=== PATIENT | female | born 1965 | race Hispanic/Latino ===

== ENCOUNTER 2020-08-02 18:54 | Inpatient (IN) | payer SELFPAY ==
[~2020-08-02] VITALS: Ht 154.9 cm; Wt 78.9 kg
[2020-08-02] MEDS ORDERED: SODIUM CHLORIDE 0.9% 50 ML IV ONE (18:59)
[2020-08-02 19:37] LABS: BASOPHILS % (AUTO) 0.2 % (0.0-5.0); EOSINOPHILS % (AUTO) 0.1 % (0.0-8.0); LYMPHOCYTES % (AUTO) 9.6 % (21.0-51.0); MEAN CORPUSCULAR HEMOGLOBIN 28.6 pg (27.0-33.0); MEAN CORPUSCULAR HGB CONC 33.6 g/dL (32.0-36.0); MEAN CORPUSCULAR VOLUME 84.9 fL (79-99); MONOCYTES % (AUTO) 3.5 % (3.0-13.0); NEUTROPHILS % (AUTO) 86.4 % (40.0-77.0); PLATELET COUNT (AUTO) 328 K/uL (130-400); RED BLOOD CELL COUNT(AUTO) 5.18 MIL/uL (4.00-5.50); RED CELL DISTRIBUTION WIDTH 12.9 % (11.0-15.5); WHITE BLOOD COUNT (AUTO) 16.2 K/uL (4.8-10.8)
[2020-08-02 19:47] LABS: INR 1.02 (0.85-1.15); PROTHROMBIN TIME 11.1 SEC (9.6-11.6)
[2020-08-02] MEDS ORDERED: SODIUM CHLORIDE 0.9% 1000ML 1,000 ML IV ONE (19:47)
[2020-08-02 19:49] LABS: PARTIAL THROMBOPLASTIN TIME 31.7 SEC (26.3-35.5)
[2020-08-02] MEDS ORDERED: METOCLOPRAMIDE 10 MG/2 ML VIAL ONE (19:49)
[2020-08-02] MEDS ORDERED: PANTOPRAZOLE 40 MG/VIAL ONE (19:49)
[2020-08-02] MEDS ORDERED: ONDANSETRON HCL 4 MG/2 ML VIAL ONE ×2 (19:49→21:30)
[2020-08-02] MEDS ORDERED: FAMOTIDINE/PF 20 MG/2 ML VIAL IV ONE (19:50)
[2020-08-02 19:52] LABS: POTASSIUM 3.4 mmol/L (3.5-5.1)
[2020-08-02 19:56] LABS: ALBUMIN 4.5 g/dL (3.5-5.0); BILIRUBIN,TOTAL 0.4 mg/dL (0.2-1.0); TOTAL PROTEIN, SERUM 9.7 g/dL (6.0-8.3)
[2020-08-02] MEDS ORDERED: MORPHINE SULFATE 2 MG/ML 1ML SYG ONE (21:30)
[2020-08-02] MEDS ORDERED: LEVOFLOXACIN 750 MG/D5W 150 ML 150 ML ONE (21:30)
[2020-08-02] MEDS ORDERED: METRONIDAZOLE 500MG/100ML BAG 100 ML ONE (21:30)
[2020-08-02] MEDS ORDERED: ACETAMINOPHEN 325 MG TAB PO PRN (21:45)
[2020-08-02] MEDS: LEVOFLOXACIN 500 MG/D5W 100 ML 100 ML IV SCH (21:45)
[2020-08-02 22:04] LABS: HEMOGLOBIN A1C 7.3 % (4.0-6.0)
[2020-08-02 22:08] LABS: APPEARANCE,URINE Cloudy (CLEAR); BILIRUBIN,URINE Small (NEGATIVE); COLOR,URINE Dark Yellow (YELLOW); GLUCOSE, URINE (UA) Negative (NEGATIVE); KETONES,URINE 15 mg/dL (NEGATIVE); LEUKOCYTE ESTERASE ,URINE Large (NEGATIVE); NITRATE,URINE Negative (NEGATIVE); OCCULT BLOOD,URINE Negative (NEGATIVE); PROTEIN,URINE POS 2+ mg/dL (NEGATIVE)
[2020-08-02 22:55] LABS: BACTERIA,URINE Moderate /HPF (None Seen); RBC,URINE 0-1 /HPF (0-1); SQUAMOUS EPITHELIAL CELL,UR 0-2 /HPF (0-2); WBC,URINE 51-100 /HPF (0-1)
[2020-08-03 00:35] VITALS: BP 133/64
[2020-08-03] MEDS: SODIUM CHLORIDE 0.9% 1000ML 1,000 ML IV SCH ×3 (01:25→20:34)
[2020-08-03] MEDS: MORPHINE SULFATE 2 MG/ML 1ML SYG IV PRN ×4 (01:26→23:23)
[2020-08-03] MEDS: ONDANSETRON HCL 4 MG/2 ML VIAL IV PRN ×4 (01:29→23:06)
[2020-08-03 04:24] VITALS: BP 135/70
[2020-08-03 05:53] LABS: BASOPHILS % (AUTO) 0.2 % (0.0-5.0); EOSINOPHILS % (AUTO) 1.3 % (0.0-8.0); HEMATOCRIT 41.2 % (36-48); LYMPHOCYTES % (AUTO) 8.8 % (21.0-51.0); MEAN CORPUSCULAR HEMOGLOBIN 27.5 pg (27.0-33.0); MEAN CORPUSCULAR VOLUME 85.8 fL (79-99); MONOCYTES % (AUTO) 5.9 % (3.0-13.0); NEUTROPHILS % (AUTO) 83.4 % (40.0-77.0); PLATELET COUNT (AUTO) 290 K/uL (130-400); WHITE BLOOD COUNT (AUTO) 12.6 K/uL (4.8-10.8)
[2020-08-03 06:17] LABS: ALBUMIN 3.6 g/dL (3.5-5.0); BILIRUBIN,TOTAL 0.6 mg/dL (0.2-1.0); CREATININE 0.8 mg/dL (0.5-1.5); POTASSIUM 3.7 mmol/L (3.5-5.1); TOTAL PROTEIN, SERUM 8.1 g/dL (6.0-8.3)
[2020-08-03 08:00] VITALS: BP 127/69
[2020-08-03] MEDS ORDERED: METRONIDAZOLE 500 MG TABLET PO SCH (09:00)
[2020-08-03] MEDS ORDERED: DIATR MEGLU/DIATRIZOATE SODIUM 30 ML BOTTLE ONE (10:51)
[2020-08-03 12:00] VITALS: BP 123/71
[2020-08-03] MEDS: FAMOTIDINE/PF 20 MG/2 ML VIAL IV SCH ×2 (12:01→20:34)
[2020-08-03] MEDS: METRONIDAZOLE 500MG/100ML BAG 100 ML IVPB SCH ×2 (14:08→23:08)
[2020-08-03 16:00] VITALS: BP 132/69
[2020-08-03 19:00] VITALS: BP 144/76
[2020-08-03] MEDS: LEVOFLOXACIN 500 MG/D5W 100 ML 100 ML IV SCH (20:34)
[2020-08-04] VITALS (24 sets, daily range): BP systolic 112–147; BP diastolic 61–94
[2020-08-04] MEDS: SODIUM CHLORIDE 0.9% 1000ML 1,000 ML IV SCH ×2 (03:45→14:19)
[2020-08-04 05:03] LABS: BASOPHILS % (AUTO) 0.1 % (0.0-5.0); HEMATOCRIT 39.4 % (36-48); LYMPHOCYTES % (AUTO) 8.9 % (21.0-51.0); MEAN CORPUSCULAR HEMOGLOBIN 28.3 pg (27.0-33.0); MEAN CORPUSCULAR HGB CONC 32.5 g/dL (32.0-36.0); MEAN CORPUSCULAR VOLUME 87.2 fL (79-99); NEUTROPHILS % (AUTO) 85.6 % (40.0-77.0); PLATELET COUNT (AUTO) 267 K/uL (130-400); RED BLOOD CELL COUNT(AUTO) 4.52 MIL/uL (4.00-5.50); WHITE BLOOD COUNT (AUTO) 13.7 K/uL (4.8-10.8)
[2020-08-04 05:29] LABS: ALBUMIN 3.2 g/dL (3.5-5.0); BILIRUBIN,TOTAL 0.6 mg/dL (0.2-1.0); CREATININE 0.8 mg/dL (0.5-1.5); POTASSIUM 3.6 mmol/L (3.5-5.1); TOTAL PROTEIN, SERUM 7.5 g/dL (6.0-8.3)
[2020-08-04] MEDS: ONDANSETRON HCL 4 MG/2 ML VIAL IV PRN ×2 (06:11→16:51)
[2020-08-04] MEDS: METRONIDAZOLE 500MG/100ML BAG 100 ML IVPB SCH ×3 (06:11→21:29)
[2020-08-04] MEDS: FAMOTIDINE/PF 20 MG/2 ML VIAL IV SCH ×2 (09:56→21:23)
[2020-08-04] MEDS ORDERED: IOHEXOL-350 50ML VIAL IV ONE (10:16)
[2020-08-04] MEDS ORDERED: PROPOFOL 10 MG/ML 20ML VIAL IV ONE (10:20)
[2020-08-04] MEDS ORDERED: PHENYLEPHRINE HCL 10 MG/ML 1ML VIAL IV ONE (10:20)
[2020-08-04] MEDS ORDERED: ATROPINE SULFATE 0.1 MG/ML 10 ML SYG IVP ONE (10:21)
[2020-08-04] MEDS ORDERED: FENTANYL CITRATE PF 50 MCG/1 ML 2ML VIAL ONE (10:24)
[2020-08-04] MEDS ORDERED: GLUCAGON 1MG KIT 1 MG ML ONE (11:04)
[2020-08-04] MEDS ORDERED: INDOMETHACIN 50 MG SUPP.RECT RC SCH (11:15)
[2020-08-04] MEDS: MORPHINE SULFATE 2 MG/ML 1ML SYG IV PRN ×2 (12:39→21:29)
[2020-08-04] MEDS: ACETAMINOPHEN 325 MG TAB PO PRN (16:07)
[2020-08-04] MEDS: LACTATED RINGERS 1000ML 1,000 ML IV SCH (18:37)
[2020-08-04] MEDS: LEVOFLOXACIN 500 MG/D5W 100 ML 100 ML IV SCH (22:38)
[2020-08-05] VITALS (7 sets, daily range): BP systolic 103–145; BP diastolic 58–74
[2020-08-05] MEDS ORDERED: BENZOCAINE 20% 57 GM SPRAY TP PRN (02:45)
[2020-08-05 05:09] LABS: BASOPHILS % (AUTO) 0.2 % (0.0-5.0); EOSINOPHILS % (AUTO) 1.8 % (0.0-8.0); HEMATOCRIT 35.9 % (36-48); LYMPHOCYTES % (AUTO) 15.2 % (21.0-51.0); MEAN CORPUSCULAR HEMOGLOBIN 27.6 pg (27.0-33.0); MEAN CORPUSCULAR VOLUME 86.3 fL (79-99); MONOCYTES % (AUTO) 5.5 % (3.0-13.0); NEUTROPHILS % (AUTO) 76.9 % (40.0-77.0); PLATELET COUNT (AUTO) 248 K/uL (130-400); RED BLOOD CELL COUNT(AUTO) 4.16 MIL/uL (4.00-5.50); RED CELL DISTRIBUTION WIDTH 12.8 % (11.0-15.5); WHITE BLOOD COUNT (AUTO) 8.6 K/uL (4.8-10.8)
[2020-08-05] MEDS: METRONIDAZOLE 500MG/100ML BAG 100 ML IVPB SCH ×3 (05:56→22:37)
[2020-08-05 05:57] LABS: ALBUMIN 2.7 g/dL (3.5-5.0); BILIRUBIN,TOTAL 0.6 mg/dL (0.2-1.0); CREATININE 0.7 mg/dL (0.5-1.5); MAGNESIUM 1.9 mg/dL (1.80-2.40); POTASSIUM 3.2 mmol/L (3.5-5.1); TOTAL PROTEIN, SERUM 6.8 g/dL (6.0-8.3)
[2020-08-05] MEDS: LACTATED RINGERS 1000ML 1,000 ML IV SCH ×3 (09:52→21:50)
[2020-08-05] MEDS: FAMOTIDINE/PF 20 MG/2 ML VIAL IV SCH ×2 (09:52→21:12)
[2020-08-05] MEDS: MORPHINE SULFATE 2 MG/ML 1ML SYG IV PRN (14:01)
[2020-08-05] MEDS: ONDANSETRON HCL 4 MG/2 ML VIAL IV PRN (14:01)
[2020-08-05] MEDS: POTASSIUM CHLORIDE 20MEQ/100ML 100 ML IV PRN ×2 (14:03→18:39)
[2020-08-05] MEDS ORDERED: LIDOCAINE HCL-MPF 1% 2ML VIAL ONE (15:35)
[2020-08-05] MEDS ORDERED: LIDOCAINE HCL-MPF 1% 2ML VIAL IV SCH (15:45)
[2020-08-05] MEDS: ACETAMINOPHEN 325 MG TAB PO PRN (17:47)
[2020-08-05] MEDS ORDERED: MAGNESIUM CITRATE 296 ML SOLUTION PO SCH (18:17)
[2020-08-05] MEDS ORDERED: IBUP-43 PO (20:33)
[2020-08-05] MEDS: LEVOFLOXACIN 500 MG/D5W 100 ML 100 ML IV SCH (21:50)
[2020-08-06] VITALS (7 sets, daily range): BP systolic 132–169; BP diastolic 72–83
[2020-08-06] MEDS ORDERED: POTASSIUM CHLORIDE 20 MEQ ERTAB PO PRN (00:30)
[2020-08-06] MEDS ORDERED: POTASSIUM CHLORIDE 10% ELIXIR 20 MEQ/15 ML UDCUP PO PRN (00:30)
[2020-08-06] MEDS ORDERED: LIDOCAINE HCL-MPF 1% 2ML VIAL ONE (00:39)
[2020-08-06] MEDS: POTASSIUM CHLORIDE 20MEQ/100ML 100 ML IV PRN ×2 (00:46→08:00)
[2020-08-06] MEDS: METRONIDAZOLE 500MG/100ML BAG 100 ML IVPB SCH ×3 (05:42→22:10)
[2020-08-06] MEDS: ONDANSETRON HCL 4 MG/2 ML VIAL IV PRN ×4 (05:50→18:58)
[2020-08-06 06:45] LABS: BASOPHILS % (AUTO) 0.3 % (0.0-5.0); EOSINOPHILS % (AUTO) 1.7 % (0.0-8.0); HEMATOCRIT 38.4 % (36-48); LYMPHOCYTES % (AUTO) 12.8 % (21.0-51.0); MEAN CORPUSCULAR HEMOGLOBIN 28.3 pg (27.0-33.0); MEAN CORPUSCULAR HGB CONC 32.8 g/dL (32.0-36.0); MEAN CORPUSCULAR VOLUME 86.3 fL (79-99); MONOCYTES % (AUTO) 4.4 % (3.0-13.0); NEUTROPHILS % (AUTO) 80.4 % (40.0-77.0); PLATELET COUNT (AUTO) 271 K/uL (130-400); RED BLOOD CELL COUNT(AUTO) 4.45 MIL/uL (4.00-5.50); RED CELL DISTRIBUTION WIDTH 12.8 % (11.0-15.5); WHITE BLOOD COUNT (AUTO) 9.8 K/uL (4.8-10.8)
[2020-08-06 06:59] LABS: ALBUMIN 3.2 g/dL (3.5-5.0); BILIRUBIN,TOTAL 0.6 mg/dL (0.2-1.0); CREATININE 0.7 mg/dL (0.5-1.5); POTASSIUM 3.6 mmol/L (3.5-5.1); TOTAL PROTEIN, SERUM 7.6 g/dL (6.0-8.3)
[2020-08-06] MEDS: FAMOTIDINE/PF 20 MG/2 ML VIAL IV SCH ×2 (08:01→21:21)
[2020-08-06] MEDS: LIDOCAINE HCL-MPF 1% 2ML VIAL IV PRN (08:01)
[2020-08-06] MEDS: LACTATED RINGERS 1000ML 1,000 ML IV SCH (12:19)
[2020-08-06] MEDS ORDERED: DIATR MEGLU/DIATRIZOATE SODIUM 30 ML BOTTLE ONE (14:23)
[2020-08-06] MEDS: PROMETHAZINE HCL 25 MG/ML 1ML AMPULE IM PRN ×2 (14:58→22:55)
[2020-08-06] MEDS: LEVOFLOXACIN 500 MG/D5W 100 ML 100 ML IV SCH (21:21)
[2020-08-07] VITALS (23 sets, daily range): BP systolic 122–153; BP diastolic 64–86
[2020-08-07] MEDS: ACETAMINOPHEN 325 MG TAB PO PRN (03:32)
[2020-08-07] MEDS: ONDANSETRON HCL 4 MG/2 ML VIAL IV PRN (03:33)
[2020-08-07] MEDS: LACTATED RINGERS 1000ML 1,000 ML IV SCH ×3 (03:44→22:36)
[2020-08-07 05:47] LABS: BASOPHILS % (AUTO) 0.4 % (0.0-5.0); EOSINOPHILS % (AUTO) 0.4 % (0.0-8.0); HEMATOCRIT 38.1 % (36-48); MEAN CORPUSCULAR HEMOGLOBIN 28.2 pg (27.0-33.0); MEAN CORPUSCULAR HGB CONC 32.8 g/dL (32.0-36.0); MONOCYTES % (AUTO) 5.7 % (3.0-13.0); PLATELET COUNT (AUTO) 287 K/uL (130-400); RED BLOOD CELL COUNT(AUTO) 4.43 MIL/uL (4.00-5.50); RED CELL DISTRIBUTION WIDTH 12.8 % (11.0-15.5); WHITE BLOOD COUNT (AUTO) 9.7 K/uL (4.8-10.8)
[2020-08-07 06:01] LABS: ALBUMIN 3.1 g/dL (3.5-5.0); BILIRUBIN,TOTAL 0.5 mg/dL (0.2-1.0); CREATININE 0.6 mg/dL (0.5-1.5); POTASSIUM 3.4 mmol/L (3.5-5.1); TOTAL PROTEIN, SERUM 7.4 g/dL (6.0-8.3)
[2020-08-07] MEDS: METRONIDAZOLE 500MG/100ML BAG 100 ML IVPB SCH ×3 (06:17→22:36)
[2020-08-07] MEDS: FAMOTIDINE/PF 20 MG/2 ML VIAL IV SCH ×2 (08:06→22:36)
[2020-08-07] MEDS: PROMETHAZINE HCL 25 MG/ML 1ML AMPULE IM PRN (08:07)
[2020-08-07] MEDS: POTASSIUM CHLORIDE 20MEQ/100ML 100 ML IV PRN ×2 (08:13→22:36)
[2020-08-07] MEDS: LIDOCAINE HCL-MPF 1% 2ML VIAL IV PRN (08:14)
[2020-08-07] MEDS ORDERED: PROPOFOL 10 MG/ML 20ML VIAL IV ONE ×3 (17:22→20:00)
[2020-08-07] MEDS ORDERED: LIDOCAINE HCL MPF 1% 5ML VIAL ONE (17:22)
[2020-08-07] MEDS ORDERED: ROCURONIUM 10MG/1ML SYR 10 MG/ML ML ONE (17:22)
[2020-08-07] MEDS ORDERED: MIDAZOLAM HCL 1 MG/ML 2ML VIAL ONE (17:22)
[2020-08-07] MEDS ORDERED: FENTANYL CITRATE PF 50 MCG/1 ML 2ML VIAL ONE ×2 (17:23→17:48)
[2020-08-07] MEDS ORDERED: CLINDAMYCIN PHOSPHATE 150 MG/ML 6ML VIAL ONE (18:50)
[2020-08-07] MEDS ORDERED: BUPIVACAINE/EPI/PF 0.5% 30ML VIAL IJ ONE (19:57)
[2020-08-07] MEDS ORDERED: LIDOCAINE HCL 1% 20 ML VIAL ONE (19:57)
[2020-08-07] MEDS ORDERED: MEPERIDINE-PF 25 MG/ML SYG ONE ×2 (20:05→21:19)
[2020-08-07] MEDS ORDERED: ONDANSETRON HCL 4 MG/2 ML VIAL ONE (20:06)
[2020-08-07] MEDS ORDERED: GLYCOPYRROLATE 1 MG/5 ML SYRINGE ONE (20:20)
[2020-08-07] MEDS ORDERED: NEOSTIGMINE 5MG/5ML SYR IV ONE (20:20)
[2020-08-07] MEDS: LEVOFLOXACIN 500 MG/D5W 100 ML 100 ML IV SCH (21:02)
[2020-08-08] VITALS (9 sets, daily range): BP systolic 111–160; BP diastolic 51–81
[2020-08-08] MEDS: MORPHINE SULFATE 2 MG/ML 1ML SYG IV PRN (00:03)
[2020-08-08] MEDS: KETOROLAC TROMETHAMINE 15MG/ML IM PRN (00:40)
[2020-08-08] MEDS: LACTATED RINGERS 1000ML 1,000 ML IV SCH ×2 (00:50→11:01)
[2020-08-08] MEDS: HYDROMORPHONE HCL 2 MG/ML VIAL IVP PRN ×5 (02:22→20:25)
[2020-08-08] MEDS: METRONIDAZOLE 500MG/100ML BAG 100 ML IVPB SCH ×3 (04:25→22:21)
[2020-08-08 05:34] LABS: BASOPHILS % (AUTO) 0.2 % (0.0-5.0); EOSINOPHILS % (AUTO) 1.6 % (0.0-8.0); HEMATOCRIT 38.7 % (36-48); LYMPHOCYTES % (AUTO) 6.3 % (21.0-51.0); MEAN CORPUSCULAR HEMOGLOBIN 28.4 pg (27.0-33.0); MEAN CORPUSCULAR VOLUME 88.6 fL (79-99); MONOCYTES % (AUTO) 5.2 % (3.0-13.0); NEUTROPHILS % (AUTO) 86.2 % (40.0-77.0); PLATELET COUNT (AUTO) 285 K/uL (130-400); RED BLOOD CELL COUNT(AUTO) 4.37 MIL/uL (4.00-5.50); RED CELL DISTRIBUTION WIDTH 13.1 % (11.0-15.5); WHITE BLOOD COUNT (AUTO) 13.6 K/uL (4.8-10.8)
[2020-08-08] MEDS: INSULIN HUMULIN R 100 UNIT/ML 3ML SQ SCH ×4 (05:57→21:00)
[2020-08-08 06:13] LABS: ALBUMIN 2.7 g/dL (3.5-5.0); CREATININE 0.5 mg/dL (0.5-1.5); TOTAL PROTEIN, SERUM 6.5 g/dL (6.0-8.3)
[2020-08-08] MEDS: FAMOTIDINE/PF 20 MG/2 ML VIAL IV SCH ×2 (08:16→20:25)
[2020-08-08] MEDS: PANTOPRAZOLE 40 MG/VIAL IVP SCH ×2 (08:17→20:25)
[2020-08-08] MEDS: ENOXAPARIN SODIUM 40 MG/0.4 ML SYRINGE SQ SCH (08:17)
[2020-08-08 11:48] LABS: INR 1.06 (0.85-1.15); PROTHROMBIN TIME 11.5 SEC (9.6-11.6)
[2020-08-08] MEDS ORDERED: M.V.I. IV [ADULT] 10 ML in CLINIMIX E 4.25%-5% SOLUTION 2,000 ML IV SCH (18:30)
[2020-08-08] MEDS: LEVOFLOXACIN 500 MG/D5W 100 ML 100 ML IV SCH (20:25)
[2020-08-09] MEDS: LACTATED RINGERS 1000ML 1,000 ML IV SCH ×2 (00:02→23:09)
[2020-08-09] MEDS ORDERED: HYDROMORPHONE 1 MG/1 ML AMP ONE ×2 (03:11→23:19)
[2020-08-09] MEDS: HYDROMORPHONE HCL 2 MG/ML VIAL IVP PRN ×5 (03:15→23:25)
[2020-08-09 03:48] VITALS: BP 145/77
[2020-08-09 05:40] LABS: BASOPHILS % (AUTO) 0.3 % (0.0-5.0); EOSINOPHILS % (AUTO) 0.3 % (0.0-8.0); HEMATOCRIT 34.2 % (36-48); LYMPHOCYTES % (AUTO) 13.7 % (21.0-51.0); MEAN CORPUSCULAR HEMOGLOBIN 27.8 pg (27.0-33.0); MEAN CORPUSCULAR HGB CONC 31.6 g/dL (32.0-36.0); MEAN CORPUSCULAR VOLUME 87.9 fL (79-99); NEUTROPHILS % (AUTO) 79.2 % (40.0-77.0); PLATELET COUNT (AUTO) 243 K/uL (130-400); RED BLOOD CELL COUNT(AUTO) 3.89 MIL/uL (4.00-5.50); RED CELL DISTRIBUTION WIDTH 13.2 % (11.0-15.5); WHITE BLOOD COUNT (AUTO) 11.7 K/uL (4.8-10.8)
[2020-08-09 05:59] LABS: ALBUMIN 2.3 g/dL (3.5-5.0); BILIRUBIN,TOTAL 0.5 mg/dL (0.2-1.0); CREATININE 0.6 mg/dL (0.5-1.5); POTASSIUM 3.4 mmol/L (3.5-5.1); TOTAL PROTEIN, SERUM 5.8 g/dL (6.0-8.3)
[2020-08-09] MEDS: INSULIN HUMULIN R 100 UNIT/ML 3ML SQ SCH ×4 (06:18→16:30)
[2020-08-09] MEDS: METRONIDAZOLE 500MG/100ML BAG 100 ML IVPB SCH ×3 (06:23→23:12)
[2020-08-09 08:00] VITALS: BP 123/63
[2020-08-09] MEDS: FAMOTIDINE/PF 20 MG/2 ML VIAL IV SCH ×2 (08:25→23:17)
[2020-08-09] MEDS: PANTOPRAZOLE 40 MG/VIAL IVP SCH ×2 (08:26→23:17)
[2020-08-09] MEDS: ENOXAPARIN SODIUM 40 MG/0.4 ML SYRINGE SQ SCH (08:26)
[2020-08-09] MEDS: KETOROLAC TROMETHAMINE 15MG/ML IM PRN (10:17)
[2020-08-09 11:35] VITALS: BP 129/67
[2020-08-09 16:00] VITALS: BP 129/88
[2020-08-09 20:04] VITALS: BP 124/53
[2020-08-09] MEDS ORDERED: M.V.I. IV [ADULT] 10 ML in CLINIMIX E 4.25%-5% SOLUTION 2,000 ML IV SCH (20:30)
[2020-08-09 23:50] VITALS: BP 118/59
[2020-08-10] MEDS: LEVOFLOXACIN 500 MG/D5W 100 ML 100 ML IV SCH ×2 (02:17→21:22)
[2020-08-10 04:03] VITALS: BP 105/56
[2020-08-10] MEDS ORDERED: HYDROMORPHONE 1 MG/1 ML AMP ONE (05:15)
[2020-08-10] MEDS: METRONIDAZOLE 500MG/100ML BAG 100 ML IVPB SCH ×3 (05:28→22:12)
[2020-08-10] MEDS: INSULIN HUMULIN R 100 UNIT/ML 3ML SQ SCH ×4 (07:30→23:50)
[2020-08-10 08:49] VITALS: BP 106/51
[2020-08-10] MEDS: HYDROMORPHONE HCL 2 MG/ML VIAL IVP PRN ×2 (09:24→14:41)
[2020-08-10] MEDS: FAMOTIDINE/PF 20 MG/2 ML VIAL IV SCH ×2 (09:25→21:19)
[2020-08-10] MEDS: PANTOPRAZOLE 40 MG/VIAL IVP SCH ×2 (09:25→21:19)
[2020-08-10] MEDS: ENOXAPARIN SODIUM 40 MG/0.4 ML SYRINGE SQ SCH (09:26)
[2020-08-10 10:59] LABS: HEMATOCRIT 31.3 % (36-48); MEAN CORPUSCULAR HEMOGLOBIN 28.6 pg (27.0-33.0); MEAN CORPUSCULAR HGB CONC 31.9 g/dL (32.0-36.0); MEAN CORPUSCULAR VOLUME 89.4 fL (79-99); PLATELET COUNT (AUTO) 218 K/uL (130-400); RED CELL DISTRIBUTION WIDTH 13.1 % (11.0-15.5)
[2020-08-10 11:00] VITALS: BP 124/67
[2020-08-10 11:21] LABS: LYMPHOCYTES % (MANUAL) 12 % (22-44); MONOCYTES % (MANUAL) 2 % (2-9); PLATELET MORPHOLOGY COMMENT ADEQUATE; REACTIVE LYMPHOCYTES 2 % (0-0); SEGMENTED NEUTROPHILS % 84 % (40-70)
[2020-08-10 11:22] LABS: CREATININE 0.5 mg/dL (0.5-1.5); MAGNESIUM 2.3 mg/dL (1.80-2.40); POTASSIUM 5.1 mmol/L (3.5-5.1)
[2020-08-10] MEDS: KETOROLAC TROMETHAMINE 15MG/ML IM PRN ×2 (12:47→21:19)
[2020-08-10 16:47] VITALS: BP 110/64
[2020-08-10] MEDS: LACTATED RINGERS 1000ML 1,000 ML IV SCH (17:25)
[2020-08-10 19:45] VITALS: BP 114/61
[2020-08-10] MEDS ORDERED: M.V.I. IV [ADULT] 10 ML in CLINIMIX E 5%-15% 2,000 ML IV SCH (20:00)
[2020-08-10 23:18] VITALS: BP 115/53
[2020-08-11] MEDS: LACTATED RINGERS 1000ML 1,000 ML IV SCH ×2 (02:46→05:28)
[2020-08-11 04:13] VITALS: BP 115/46
[2020-08-11] MEDS: METRONIDAZOLE 500MG/100ML BAG 100 ML IVPB SCH ×3 (05:01→22:09)
[2020-08-11] MEDS: INSULIN HUMULIN R 100 UNIT/ML 3ML SQ SCH ×3 (05:29→18:15)
[2020-08-11] MEDS: HYDROMORPHONE 1 MG/1 ML AMP IVP PRN ×4 (05:43→20:32)
[2020-08-11 06:06] LABS: BILIRUBIN,TOTAL 0.4 mg/dL (0.2-1.0); CREATININE 0.5 mg/dL (0.5-1.5); MAGNESIUM 1.9 mg/dL (1.80-2.40); PHOSPHORUS 4.2 mg/dL (2.5-4.9); POTASSIUM 3.3 mmol/L (3.5-5.1)
[2020-08-11 06:07] LABS: ALBUMIN 2.1 g/dL (3.5-5.0); TOTAL PROTEIN, SERUM 5.8 g/dL (6.0-8.3)
[2020-08-11] MEDS: POTASSIUM CHLORIDE 20MEQ/100ML 100 ML IV PRN (06:37)
[2020-08-11 07:30] VITALS: BP 116/59
[2020-08-11] MEDS: ENOXAPARIN SODIUM 40 MG/0.4 ML SYRINGE SQ SCH (09:48)
[2020-08-11] MEDS: PANTOPRAZOLE 40 MG/VIAL IVP SCH ×2 (09:48→20:31)
[2020-08-11] MEDS: FAMOTIDINE/PF 20 MG/2 ML VIAL IV SCH ×2 (09:48→20:31)
[2020-08-11] MEDS: FAT EMULSIONS 20% 250ML 250 ML IV SCH (10:28)
[2020-08-11 11:00] VITALS: BP 119/64
[2020-08-11 16:50] VITALS: BP 138/61
[2020-08-11 19:05] VITALS: BP 120/65
[2020-08-11] MEDS ORDERED: M.V.I. IV [ADULT] 10 ML in CLINIMIX E 5%-15% 2,000 ML IV ONE (20:00)
[2020-08-11] MEDS: LEVOFLOXACIN 500 MG/D5W 100 ML 100 ML IV SCH (20:32)
[2020-08-11 23:54] VITALS: BP 143/79
[2020-08-12] MEDS: HYDROMORPHONE 1 MG/1 ML AMP IVP PRN ×5 (03:14→23:18)
[2020-08-12 03:20] VITALS: BP 123/64
[2020-08-12] MEDS: METRONIDAZOLE 500MG/100ML BAG 100 ML IVPB SCH ×3 (05:27→22:18)
[2020-08-12 05:38] LABS: BASOPHILS % (AUTO) 0.4 % (0.0-5.0); EOSINOPHILS % (AUTO) 4.2 % (0.0-8.0); HEMATOCRIT 30.9 % (36-48); LYMPHOCYTES % (AUTO) 18.5 % (21.0-51.0); MEAN CORPUSCULAR HEMOGLOBIN 28.2 pg (27.0-33.0); MEAN CORPUSCULAR HGB CONC 32.7 g/dL (32.0-36.0); MEAN CORPUSCULAR VOLUME 86.3 fL (79-99); MONOCYTES % (AUTO) 4.8 % (3.0-13.0); NEUTROPHILS % (AUTO) 70.3 % (40.0-77.0); PLATELET COUNT (AUTO) 242 K/uL (130-400); RED BLOOD CELL COUNT(AUTO) 3.58 MIL/uL (4.00-5.50); RED CELL DISTRIBUTION WIDTH 12.8 % (11.0-15.5); WHITE BLOOD COUNT (AUTO) 9.3 K/uL (4.8-10.8)
[2020-08-12] MEDS: INSULIN HUMULIN R 100 UNIT/ML 3ML SQ SCH ×4 (05:55→18:22)
[2020-08-12 06:02] LABS: ALBUMIN 2.3 g/dL (3.5-5.0); BILIRUBIN,TOTAL 0.3 mg/dL (0.2-1.0); CREATININE 0.5 mg/dL (0.5-1.5); POTASSIUM 3.3 mmol/L (3.5-5.1); TOTAL PROTEIN, SERUM 6.1 g/dL (6.0-8.3)
[2020-08-12] MEDS: LACTATED RINGERS 1000ML 1,000 ML IV SCH ×2 (06:10→19:30)
[2020-08-12] MEDS ORDERED: DIATR MEGLU/DIATRIZOATE SODIUM 30 ML BOTTLE ONE ×2 (08:13→10:45)
[2020-08-12 08:44] VITALS: BP 108/66
[2020-08-12] MEDS: FAMOTIDINE/PF 20 MG/2 ML VIAL IV SCH ×2 (10:29→22:13)
[2020-08-12] MEDS: PANTOPRAZOLE 40 MG/VIAL IVP SCH ×2 (10:30→22:18)
[2020-08-12] MEDS: ENOXAPARIN SODIUM 40 MG/0.4 ML SYRINGE SQ SCH (10:30)
[2020-08-12] MEDS: POTASSIUM CHLORIDE 20MEQ/100ML 100 ML IV PRN (10:38)
[2020-08-12 12:29] VITALS: BP 109/58
[2020-08-12 17:08] VITALS: BP 128/67
[2020-08-12 19:05] VITALS: BP 120/56
[2020-08-12] MEDS: LEVOFLOXACIN 500 MG/D5W 100 ML 100 ML IV SCH (22:18)
[2020-08-12 23:54] VITALS: BP 119/57
[2020-08-13] VITALS (7 sets, daily range): BP systolic 108–135; BP diastolic 55–83
[2020-08-13] MEDS: HYDROMORPHONE 1 MG/1 ML AMP IVP PRN ×5 (02:37→19:40)
[2020-08-13 05:32] LABS: BASOPHILS % (AUTO) 0.4 % (0.0-5.0); EOSINOPHILS % (AUTO) 3.4 % (0.0-8.0); HEMATOCRIT 31.9 % (36-48); LYMPHOCYTES % (AUTO) 16.5 % (21.0-51.0); MEAN CORPUSCULAR HEMOGLOBIN 28.3 pg (27.0-33.0); MEAN CORPUSCULAR HGB CONC 32.6 g/dL (32.0-36.0); MEAN CORPUSCULAR VOLUME 86.9 fL (79-99); MONOCYTES % (AUTO) 5.4 % (3.0-13.0); NEUTROPHILS % (AUTO) 72.3 % (40.0-77.0); PLATELET COUNT (AUTO) 272 K/uL (130-400); RED BLOOD CELL COUNT(AUTO) 3.67 MIL/uL (4.00-5.50); RED CELL DISTRIBUTION WIDTH 13.2 % (11.0-15.5)
[2020-08-13] MEDS: INSULIN HUMULIN R 100 UNIT/ML 3ML SQ SCH ×4 (05:42→20:19)
[2020-08-13] MEDS: METRONIDAZOLE 500MG/100ML BAG 100 ML IVPB SCH ×3 (05:42→20:17)
[2020-08-13 05:54] LABS: ALBUMIN 2.5 g/dL (3.5-5.0); BILIRUBIN,TOTAL 0.4 mg/dL (0.2-1.0); CREATININE 0.5 mg/dL (0.5-1.5); POTASSIUM 3.5 mmol/L (3.5-5.1); TOTAL PROTEIN, SERUM 6.5 g/dL (6.0-8.3)
[2020-08-13] MEDS: ENOXAPARIN SODIUM 40 MG/0.4 ML SYRINGE SQ SCH (10:25)
[2020-08-13] MEDS: FAT EMULSIONS 20% 250ML 250 ML IV SCH (10:25)
[2020-08-13] MEDS: FAMOTIDINE/PF 20 MG/2 ML VIAL IV SCH ×2 (10:26→20:15)
[2020-08-13] MEDS: PANTOPRAZOLE 40 MG/VIAL IVP SCH ×2 (10:26→20:15)
[2020-08-13] MEDS ORDERED: M.V.I. IV [ADULT] 10 ML in CLINIMIX E 5%-15% 2,000 ML IV SCH (11:55)
[2020-08-13] MEDS: LEVOFLOXACIN 500 MG/D5W 100 ML 100 ML IV SCH (20:15)
[2020-08-14] MEDS: HYDROMORPHONE 1 MG/1 ML AMP IVP PRN ×3 (01:28→10:40)
[2020-08-14 04:24] VITALS: BP 100/60
[2020-08-14 05:10] LABS: BASOPHILS % (AUTO) 0.4 % (0.0-5.0); EOSINOPHILS % (AUTO) 3.4 % (0.0-8.0); HEMATOCRIT 31.5 % (36-48); LYMPHOCYTES % (AUTO) 14.1 % (21.0-51.0); MEAN CORPUSCULAR HEMOGLOBIN 28.2 pg (27.0-33.0); MEAN CORPUSCULAR HGB CONC 32.4 g/dL (32.0-36.0); MONOCYTES % (AUTO) 6.1 % (3.0-13.0); NEUTROPHILS % (AUTO) 74.2 % (40.0-77.0); PLATELET COUNT (AUTO) 273 K/uL (130-400); RED BLOOD CELL COUNT(AUTO) 3.62 MIL/uL (4.00-5.50); RED CELL DISTRIBUTION WIDTH 13.1 % (11.0-15.5); WHITE BLOOD COUNT (AUTO) 11.9 K/uL (4.8-10.8)
[2020-08-14 05:24] LABS: ALBUMIN 2.5 g/dL (3.5-5.0); BILIRUBIN,TOTAL 0.3 mg/dL (0.2-1.0); CREATININE 0.6 mg/dL (0.5-1.5); POTASSIUM 3.8 mmol/L (3.5-5.1); TOTAL PROTEIN, SERUM 6.6 g/dL (6.0-8.3)
[2020-08-14] MEDS: METRONIDAZOLE 500MG/100ML BAG 100 ML IVPB SCH ×3 (05:58→22:53)
[2020-08-14] MEDS: INSULIN HUMULIN R 100 UNIT/ML 3ML SQ SCH ×4 (06:00→20:41)
[2020-08-14 07:30] VITALS: BP 105/61
[2020-08-14] MEDS: FAMOTIDINE/PF 20 MG/2 ML VIAL IV SCH ×2 (08:28→20:41)
[2020-08-14] MEDS: PANTOPRAZOLE 40 MG/VIAL IVP SCH ×2 (08:28→20:41)
[2020-08-14] MEDS: ENOXAPARIN SODIUM 40 MG/0.4 ML SYRINGE SQ SCH (08:29)
[2020-08-14 11:00] VITALS: BP 112/61
[2020-08-14] MEDS: KETOROLAC TROMETHAMINE 15MG/ML IM PRN (15:42)
[2020-08-14 16:00] VITALS: BP 104/67
[2020-08-14 20:00] VITALS: BP 116/58
[2020-08-14] MEDS: ONDANSETRON HCL 4 MG/2 ML VIAL IV PRN (20:41)
[2020-08-14] MEDS: LEVOFLOXACIN 500 MG/D5W 100 ML 100 ML IV SCH (20:41)
[2020-08-14] MEDS: HYDROMORPHONE HCL 0.5 MG/0.5 ML ML IVP PRN (20:43)
[2020-08-15] VITALS: BP 105/56
[2020-08-15 04:00] VITALS: BP 99/55
[2020-08-15] MEDS: HYDROMORPHONE HCL 0.5 MG/0.5 ML ML IVP PRN ×4 (04:15→13:15)
[2020-08-15] MEDS: METRONIDAZOLE 500MG/100ML BAG 100 ML IVPB SCH ×3 (06:24→22:43)
[2020-08-15] MEDS: INSULIN HUMULIN R 100 UNIT/ML 3ML SQ SCH ×4 (06:24→21:00)
[2020-08-15 08:00] VITALS: BP 100/60
[2020-08-15] MEDS: ENOXAPARIN SODIUM 40 MG/0.4 ML SYRINGE SQ SCH (08:56)
[2020-08-15] MEDS: FAMOTIDINE/PF 20 MG/2 ML VIAL IV SCH ×2 (08:56→22:43)
[2020-08-15] MEDS: PANTOPRAZOLE 40 MG/VIAL IVP SCH ×2 (08:56→22:43)
[2020-08-15 11:48] VITALS: BP 111/62
[2020-08-15 16:04] VITALS: BP 91/63
[2020-08-15] MEDS: ACETAMINOPHEN-CODEINE 300/30MG TAB PO PRN ×2 (17:44→23:26)
[2020-08-15] MEDS: ONDANSETRON HCL 4 MG/2 ML VIAL IV PRN (17:48)
[2020-08-15] MEDS ORDERED: BISACODYL 10 MG SUPP.RECT RC ONE ×2 (19:58→22:20)
[2020-08-15 20:00] VITALS: BP 100/54
[2020-08-15] MEDS: LEVOFLOXACIN 500 MG/D5W 100 ML 100 ML IV SCH (22:43)
[2020-08-15] MEDS: PROMETHAZINE HCL 25 MG/ML 1ML AMPULE IM PRN (22:44)
[2020-08-16] VITALS (7 sets, daily range): BP systolic 94–127; BP diastolic 51–72
[2020-08-16] MEDS: METRONIDAZOLE 500MG/100ML BAG 100 ML IVPB SCH ×3 (05:56→22:13)
[2020-08-16 06:10] LABS: BASOPHILS % (AUTO) 0.3 % (0.0-5.0); EOSINOPHILS % (AUTO) 2.4 % (0.0-8.0); HEMATOCRIT 33.2 % (36-48); LYMPHOCYTES % (AUTO) 13.3 % (21.0-51.0); MEAN CORPUSCULAR HEMOGLOBIN 27.7 pg (27.0-33.0); MEAN CORPUSCULAR HGB CONC 31.9 g/dL (32.0-36.0); MEAN CORPUSCULAR VOLUME 86.9 fL (79-99); MONOCYTES % (AUTO) 5.8 % (3.0-13.0); PLATELET COUNT (AUTO) 343 K/uL (130-400); RED BLOOD CELL COUNT(AUTO) 3.82 MIL/uL (4.00-5.50); RED CELL DISTRIBUTION WIDTH 13.3 % (11.0-15.5); WHITE BLOOD COUNT (AUTO) 12.1 K/uL (4.8-10.8)
[2020-08-16] MEDS: ACETAMINOPHEN-CODEINE 300/30MG TAB PO PRN (06:16)
[2020-08-16] MEDS: INSULIN HUMULIN R 100 UNIT/ML 3ML SQ SCH ×4 (06:59→21:00)
[2020-08-16 07:07] LABS: ALBUMIN 2.7 g/dL (3.5-5.0); BILIRUBIN,TOTAL 0.4 mg/dL (0.2-1.0); CREATININE 0.7 mg/dL (0.5-1.5); TOTAL PROTEIN, SERUM 6.9 g/dL (6.0-8.3)
[2020-08-16] MEDS: ENOXAPARIN SODIUM 40 MG/0.4 ML SYRINGE SQ SCH (08:30)
[2020-08-16] MEDS: PANTOPRAZOLE 40 MG/VIAL IVP SCH ×2 (08:31→22:12)
[2020-08-16] MEDS: FAMOTIDINE/PF 20 MG/2 ML VIAL IV SCH ×2 (08:31→22:13)
[2020-08-16] MEDS ORDERED: HYDROMORPHONE HCL 0.5 MG/0.5 ML ML IVP PRN (10:00)
[2020-08-16] MEDS ORDERED: IBUPROFEN 800 MG TAB PO PRN (13:45)
[2020-08-16] MEDS: SENNOSIDES 8.6 MG TABLET PO SCH (22:14)
[2020-08-17] MEDS: ACETAMINOPHEN-CODEINE 300/30MG TAB PO PRN ×4 (04:12→19:19)
[2020-08-17 04:24] VITALS: BP 105/59
[2020-08-17 04:57] LABS: BASOPHILS % (AUTO) 0.3 % (0.0-5.0); EOSINOPHILS % (AUTO) 2.4 % (0.0-8.0); HEMATOCRIT 32.2 % (36-48); LYMPHOCYTES % (AUTO) 16.1 % (21.0-51.0); MEAN CORPUSCULAR HEMOGLOBIN 28.2 pg (27.0-33.0); MEAN CORPUSCULAR HGB CONC 32.3 g/dL (32.0-36.0); MEAN CORPUSCULAR VOLUME 87.3 fL (79-99); MONOCYTES % (AUTO) 6.2 % (3.0-13.0); NEUTROPHILS % (AUTO) 74.2 % (40.0-77.0); PLATELET COUNT (AUTO) 383 K/uL (130-400); RED BLOOD CELL COUNT(AUTO) 3.69 MIL/uL (4.00-5.50); RED CELL DISTRIBUTION WIDTH 13.3 % (11.0-15.5); WHITE BLOOD COUNT (AUTO) 10.7 K/uL (4.8-10.8)
[2020-08-17 05:09] LABS: ALBUMIN 2.7 g/dL (3.5-5.0); BILIRUBIN,TOTAL 0.4 mg/dL (0.2-1.0); CREATININE 0.7 mg/dL (0.5-1.5); POTASSIUM 3.6 mmol/L (3.5-5.1); TOTAL PROTEIN, SERUM 6.8 g/dL (6.0-8.3)
[2020-08-17] MEDS: INSULIN HUMULIN R 100 UNIT/ML 3ML SQ SCH ×5 (05:25→22:00)
[2020-08-17] MEDS: METRONIDAZOLE 500MG/100ML BAG 100 ML IVPB SCH (06:17)
[2020-08-17] MEDS: SENNOSIDES 8.6 MG TABLET PO SCH ×2 (08:46→22:00)
[2020-08-17] MEDS: PANTOPRAZOLE 40 MG/VIAL IVP SCH ×2 (08:46→21:59)
[2020-08-17] MEDS: FAMOTIDINE/PF 20 MG/2 ML VIAL IV SCH ×2 (08:46→21:59)
[2020-08-17] MEDS: ENOXAPARIN SODIUM 40 MG/0.4 ML SYRINGE SQ SCH (08:47)
[2020-08-17] MEDS: ONDANSETRON HCL 4 MG/2 ML VIAL IV PRN (10:29)
[2020-08-17 10:30] VITALS: BP 118/60
[2020-08-17 12:07] VITALS: BP 111/57
[2020-08-17] MEDS ORDERED: ONDANSETRON HCL 4 MG/2 ML VIAL IV PRN (15:45)
[2020-08-17 17:38] VITALS: BP 107/61
[2020-08-17 20:00] VITALS: BP 103/63
[2020-08-18] VITALS (7 sets, daily range): BP systolic 92–128; BP diastolic 40–72
[2020-08-18] MEDS: ACETAMINOPHEN-CODEINE 300/30MG TAB PO PRN ×2 (05:21→12:04)
[2020-08-18 05:23] LABS: BASOPHILS % (AUTO) 0.4 % (0.0-5.0); EOSINOPHILS % (AUTO) 2.1 % (0.0-8.0); HEMATOCRIT 32.4 % (36-48); LYMPHOCYTES % (AUTO) 17.1 % (21.0-51.0); MEAN CORPUSCULAR HGB CONC 32.1 g/dL (32.0-36.0); MEAN CORPUSCULAR VOLUME 87.3 fL (79-99); MONOCYTES % (AUTO) 6.1 % (3.0-13.0); NEUTROPHILS % (AUTO) 73.4 % (40.0-77.0); PLATELET COUNT (AUTO) 403 K/uL (130-400); RED BLOOD CELL COUNT(AUTO) 3.71 MIL/uL (4.00-5.50); RED CELL DISTRIBUTION WIDTH 13.3 % (11.0-15.5); WHITE BLOOD COUNT (AUTO) 10.2 K/uL (4.8-10.8)
[2020-08-18 06:09] LABS: ALBUMIN 2.6 g/dL (3.5-5.0); BILIRUBIN,TOTAL 0.3 mg/dL (0.2-1.0); CREATININE 0.7 mg/dL (0.5-1.5); POTASSIUM 3.8 mmol/L (3.5-5.1); TOTAL PROTEIN, SERUM 6.7 g/dL (6.0-8.3)
[2020-08-18] MEDS: SENNOSIDES 8.6 MG TABLET PO SCH ×2 (09:14→22:11)
[2020-08-18] MEDS: PANTOPRAZOLE 40 MG/VIAL IVP SCH ×2 (09:14→22:09)
[2020-08-18] MEDS: FAMOTIDINE/PF 20 MG/2 ML VIAL IV SCH ×2 (09:14→22:09)
[2020-08-18] MEDS: ENOXAPARIN SODIUM 40 MG/0.4 ML SYRINGE SQ SCH (09:15)
[2020-08-18] MEDS: INSULIN HUMULIN R 100 UNIT/ML 3ML SQ SCH ×3 (11:55→21:00)
[2020-08-19] MEDS: ACETAMINOPHEN-CODEINE 300/30MG TAB PO PRN ×2 (01:21→15:42)
[2020-08-19 04:00] VITALS: BP 97/52
[2020-08-19 06:33] LABS: BASOPHILS % (AUTO) 0.4 % (0.0-5.0); EOSINOPHILS % (AUTO) 2.4 % (0.0-8.0); HEMATOCRIT 32.6 % (36-48); LYMPHOCYTES % (AUTO) 22.6 % (21.0-51.0); MEAN CORPUSCULAR HEMOGLOBIN 27.7 pg (27.0-33.0); MEAN CORPUSCULAR HGB CONC 31.9 g/dL (32.0-36.0); MEAN CORPUSCULAR VOLUME 86.7 fL (79-99); MONOCYTES % (AUTO) 6.2 % (3.0-13.0); NEUTROPHILS % (AUTO) 67.6 % (40.0-77.0); PLATELET COUNT (AUTO) 405 K/uL (130-400); RED BLOOD CELL COUNT(AUTO) 3.76 MIL/uL (4.00-5.50); RED CELL DISTRIBUTION WIDTH 13.2 % (11.0-15.5); WHITE BLOOD COUNT (AUTO) 9.9 K/uL (4.8-10.8)
[2020-08-19] MEDS: INSULIN HUMULIN R 100 UNIT/ML 3ML SQ SCH ×3 (06:38→16:30)
[2020-08-19 06:52] LABS: ALBUMIN 2.7 g/dL (3.5-5.0); BILIRUBIN,TOTAL 0.3 mg/dL (0.2-1.0); CREATININE 0.6 mg/dL (0.5-1.5); POTASSIUM 3.6 mmol/L (3.5-5.1); TOTAL PROTEIN, SERUM 6.8 g/dL (6.0-8.3)
[2020-08-19] MEDS: PANTOPRAZOLE 40 MG/VIAL IVP SCH (08:36)
[2020-08-19] MEDS: FAMOTIDINE/PF 20 MG/2 ML VIAL IV SCH (08:36)
[2020-08-19] MEDS: ENOXAPARIN SODIUM 40 MG/0.4 ML SYRINGE SQ SCH (08:37)
[2020-08-19 08:42] VITALS: BP 103/56
[2020-08-19] MEDS: SENNOSIDES 8.6 MG TABLET PO SCH (09:00)
[2020-08-19 11:34] VITALS: BP 112/67
[2020-08-19] MEDS ORDERED: LEVO500T89 PO (15:04)
[2020-08-19] MEDS ORDERED: METR500T PO (15:04)
== END 2020-08-19 17:15 | disposition home or self-care (01) | DRG 414 ==
LOC: EDH 18:54 → EDHIP 18:55 → 3DH 08-03 00:25 → WSH 08-05 18:20 → 3CH 08-07 21:45
PROVIDERS: ADMIT Family Medicine; ATTEND Family Medicine
PROC: 0D9670Z Drainage of Stomach with Drainage Device, Via Natural or Artificial Opening (ICD-10-PCS; 2020-08-03)
PROC: 0F798ZZ Dilation of Common Bile Duct, Via Natural or Artificial Opening Endoscopic (ICD-10-PCS; 2020-08-04)
PROC: 0FC98ZZ Extirpation of Matter from Common Bile Duct, Via Natural or Artificial Opening Endoscopic (ICD-10-PCS; 2020-08-04)
PROC: 0FT40ZZ Resection of Gallbladder, Open Approach (ICD-10-PCS; principal; 2020-08-07 17:20)
PROC: 0DTJ0ZZ Resection of Appendix, Open Approach (ICD-10-PCS; 2020-08-07 17:20)
PROC: 0DQ90ZZ Repair Duodenum, Open Approach (ICD-10-PCS; 2020-08-07 17:20)
PROC: 0DH60UZ Insertion of Feeding Device into Stomach, Open Approach (ICD-10-PCS; 2020-08-07 17:20)
PROC: 0DB80ZZ Excision of Small Intestine, Open Approach (ICD-10-PCS; 2020-08-07 17:20)
PROC: 3E0436Z Introduction of Nutritional Substance into Central Vein, Percutaneous Approach (ICD-10-PCS; 2020-08-09)
PROC: 02HV33Z Insertion of Infusion Device into Superior Vena Cava, Percutaneous Approach (ICD-10-PCS; 2020-08-09)
PROC: B548ZZA Ultrasonography of Superior Vena Cava, Guidance (ICD-10-PCS; 2020-08-09)
DX: K80.63 Calculus of gallbladder and bile duct with acute cholecystitis with obstruction (principal); K85.10 Biliary acute pancreatitis without necrosis or infection; E87.0 Hyperosmolality and hypernatremia; K31.6 Fistula of stomach and duodenum; K56.3 Gallstone ileus; K56.600 Partial intestinal obstruction, unspecified as to cause; K82.3 Fistula of gallbladder; E86.0 Dehydration; E11.65 Type 2 diabetes mellitus with hyperglycemia; E87.6 Hypokalemia; E66.9 Obesity, unspecified; E86.1 Hypovolemia; R74.01 Elevation of levels of liver transaminase levels; K83.8 Other specified diseases of biliary tract; Z68.32 Body mass index [BMI] 32.0-32.9, adult; Z88.0 Allergy status to penicillin; Z82.49 Family history of ischemic heart disease and other diseases of the circulatory system; Z83.3 Family history of diabetes mellitus; Z87.891 Personal history of nicotine dependence
CPT/HCPCS: 36415; 43262; 43264; 71045; 74018; 74021; 74176; 74181; 74240; 74330; 76705; 80048; 80053; 81001; 82150; 82948; 83036; 83605; 83690; 83735; 84100; 84132; 84145; 84484; 85025; 85610; 85651; 85730; 86850; 86900; 86901; 86923; 87040; 87088; 93005; 97039; A4344; A4606; C1769; C1773; C1894; C9113; G0378; J0461; J1170; J1610; J1650; J1815; J1885; J1956; J2175; J2250; J2370; J2405; J2550; J2704; J2710; J2765; J3010; J3480; J3490; J7030; J7120; Q9963; Q9967

== ENCOUNTER 2022-05-19 16:35 | Inpatient (IN) | payer OTHER ==
[~2022-05-19] VITALS: Ht 157.5 cm; Wt 73.1 kg
[~2022-05-19 16:35] MED LIST: LEVO-70 PO; METR500T PO
[2022-05-19] MEDS ORDERED: ONDANSETRON 4MG INJ IVP ONE (17:30)
[2022-05-19] MEDS ORDERED: LACTATED RINGERS 1000ML 1,000 ML IV ONE (17:30)
[2022-05-19] MEDS ORDERED: PANTOPRAZOLE 40 MG/VIAL IVP ONE (17:30)
[2022-05-19 17:49] LABS: BASOPHILS % (AUTO) 0.2 % (0.0-5.0); EOSINOPHILS % (AUTO) 0.1 % (0.0-8.0); HEMATOCRIT 44.6 % (36-48); LYMPHOCYTES % (AUTO) 10.8 % (21.0-51.0); MEAN CORPUSCULAR HEMOGLOBIN 29.6 pg (27.0-33.0); MEAN CORPUSCULAR HGB CONC 33.4 g/dL (32.0-36.0); MEAN CORPUSCULAR VOLUME 88.7 fL (79-99); MONOCYTES % (AUTO) 7.1 % (3.0-13.0); NEUTROPHILS % (AUTO) 81.4 % (40.0-77.0); PLATELET COUNT (AUTO) 212 K/uL (130-400); RED BLOOD CELL COUNT(AUTO) 5.03 MIL/uL (4.00-5.50); RED CELL DISTRIBUTION WIDTH 12.3 % (11.0-15.5); WHITE BLOOD COUNT (AUTO) 10.5 K/uL (4.8-10.8)
[2022-05-19 18:34] LABS: CREATININE 0.8 mg/dL (0.5-1.5); POTASSIUM 3.9 mmol/L (3.5-5.1)
[2022-05-19 18:38] LABS: ALBUMIN 4.2 g/dL (3.5-5.0); TOTAL PROTEIN, SERUM 8.4 g/dL (6.0-8.3)
[2022-05-19] MEDS ORDERED: ACETAMINOPHEN 325 MG TAB PO PRN ×2 (19:30)
[2022-05-19] MEDS ORDERED: GLUCAGON 1MG KIT 1 MG ML IM PRN (19:30)
[2022-05-19] MEDS ORDERED: NITROGLYCERIN 0.4 MG SL TAB SL PRN (19:30)
[2022-05-19] MEDS: INSULIN HUMULIN R 100 UNIT/ML 3ML SQ SCH ×2 (19:30→23:45)
[2022-05-19] MEDS ORDERED: DEXTROSE 50%-WATER 50 ML DISP.SYRIN IV PRN (19:30)
[2022-05-19] MEDS ORDERED: LIDOCAINE HCL 2% VISCOUS 15 ML UDCUP ONE (20:06)
[2022-05-19 20:15] LABS: INR 0.94 (0.85-1.15); PROTHROMBIN TIME 10.3 SEC (9.6-11.6)
[2022-05-19] MEDS: FAMOTIDINE 20MG VIAL IV SCH (20:17)
[2022-05-19] MEDS: 0.9%NACL 1000ML 1,000 ML IV SCH (20:17)
[2022-05-19 20:32] LABS: APPEARANCE,URINE CLEAR (CLEAR); BILIRUBIN,URINE NEGATIVE (NEGATIVE); COLOR,URINE YELLOW (YELLOW); GLUCOSE, URINE (UA) NEGATIVE (NEGATIVE); KETONES,URINE NEGATIVE (NEGATIVE); LEUKOCYTE ESTERASE ,URINE 75 Leu/uL (NEGATIVE); NITRATE,URINE NEGATIVE (NEGATIVE); OCCULT BLOOD,URINE NEGATIVE (NEGATIVE); PH,URINE 5.5 (5.0-8.0); PROTEIN,URINE 20 mg/dL (NEGATIVE); UROBILINOGEN,URINE 0.2 mg/dL (0.2-1.0)
[2022-05-19 20:45] LABS: MUCUS,URINE RARE LPF (None Seen); RBC,URINE 0-1 /HPF (0-1)
[2022-05-19 21:51] VITALS: BP 146/77
[2022-05-19] MEDS: MORPHINE 4 MG SYG IV PRN (21:53)
[2022-05-19] MEDS ORDERED: OMEP20CA12 PO (21:56)
[2022-05-19] MEDS ORDERED: ONDA4TAB10 PO (21:56)
[2022-05-19] MEDS ORDERED: DICY10CA13 PO (21:56)
[2022-05-20] VITALS (7 sets, daily range): BP systolic 112–129; BP diastolic 51–71
[2022-05-20] MEDS: 0.9%NACL 1000ML 1,000 ML IV SCH ×4 (03:08→21:02)
[2022-05-20] MEDS: INSULIN HUMULIN R 100 UNIT/ML 3ML SQ SCH ×3 (06:00→17:30)
[2022-05-20 06:51] LABS: BASOPHILS % (AUTO) 0.6 % (0.0-5.0); EOSINOPHILS % (AUTO) 2.3 % (0.0-8.0); HEMATOCRIT 38.6 % (36-48); LYMPHOCYTES % (AUTO) 24.1 % (21.0-51.0); MEAN CORPUSCULAR HEMOGLOBIN 29.3 pg (27.0-33.0); MEAN CORPUSCULAR HGB CONC 33.2 g/dL (32.0-36.0); MEAN CORPUSCULAR VOLUME 88.3 fL (79-99); NEUTROPHILS % (AUTO) 62.7 % (40.0-77.0); PLATELET COUNT (AUTO) 201 K/uL (130-400); RED BLOOD CELL COUNT(AUTO) 4.37 MIL/uL (4.00-5.50); RED CELL DISTRIBUTION WIDTH 12.4 % (11.0-15.5); WHITE BLOOD COUNT (AUTO) 6.5 K/uL (4.8-10.8)
[2022-05-20 07:08] LABS: ALBUMIN 3.4 g/dL (3.5-5.0); CREATININE 0.8 mg/dL (0.5-1.5); POTASSIUM 3.4 mmol/L (3.5-5.1); TOTAL PROTEIN, SERUM 6.6 g/dL (6.0-8.3)
[2022-05-20] MEDS: MORPHINE 2 MG SYG IV PRN ×3 (08:00→21:02)
[2022-05-20] MEDS: FAMOTIDINE 20MG VIAL IV SCH ×2 (08:00→20:58)
[2022-05-21] MEDS: 0.9%NACL 1000ML 1,000 ML IV SCH ×4 (02:34→19:30)
[2022-05-21] MEDS: MORPHINE 2 MG SYG IV PRN ×4 (03:38→17:53)
[2022-05-21 04:00] VITALS: BP 123/66
[2022-05-21] MEDS: INSULIN HUMULIN R 100 UNIT/ML 3ML SQ SCH ×4 (06:00→18:00)
[2022-05-21 08:04] VITALS: BP 121/63
[2022-05-21] MEDS: FAMOTIDINE 20MG VIAL IV SCH ×2 (08:29→20:07)
[2022-05-21 11:19] VITALS: BP 119/54
[2022-05-21 16:16] VITALS: BP 127/62
[2022-05-21 20:00] VITALS: BP 135/67
[2022-05-21] MEDS: MORPHINE 4 MG SYG IV PRN (22:15)
[2022-05-21 23:50] VITALS: BP 123/60
[2022-05-22] MEDS: MORPHINE 4 MG SYG IV PRN ×3 (03:17→16:59)
[2022-05-22] MEDS: 0.9%NACL 1000ML 1,000 ML IV SCH ×3 (03:30→19:30)
[2022-05-22 04:00] VITALS: BP 122/63
[2022-05-22] MEDS: INSULIN HUMULIN R 100 UNIT/ML 3ML SQ SCH ×5 (05:59→23:38)
[2022-05-22 06:17] LABS: BASOPHILS % (AUTO) 0.1 % (0.0-5.0); EOSINOPHILS % (AUTO) 0.7 % (0.0-8.0); HEMATOCRIT 34.7 % (36-48); LYMPHOCYTES % (AUTO) 19.6 % (21.0-51.0); MEAN CORPUSCULAR HEMOGLOBIN 29.9 pg (27.0-33.0); MEAN CORPUSCULAR HGB CONC 33.4 g/dL (32.0-36.0); MEAN CORPUSCULAR VOLUME 89.4 fL (79-99); MONOCYTES % (AUTO) 7.2 % (3.0-13.0); NEUTROPHILS % (AUTO) 71.9 % (40.0-77.0); PLATELET COUNT (AUTO) 172 K/uL (130-400); RED BLOOD CELL COUNT(AUTO) 3.88 MIL/uL (4.00-5.50); WHITE BLOOD COUNT (AUTO) 7.4 K/uL (4.8-10.8)
[2022-05-22 06:36] LABS: ALBUMIN 3.2 g/dL (3.5-5.0); CREATININE 0.5 mg/dL (0.5-1.5); MAGNESIUM 2.1 mg/dL (1.80-2.40); POTASSIUM 3.3 mmol/L (3.5-5.1)
[2022-05-22 08:11] VITALS: BP 119/55
[2022-05-22] MEDS: FAMOTIDINE 20MG VIAL IV SCH ×2 (09:47→20:11)
[2022-05-22] MEDS ORDERED: POTASSIUM CHLORIDE 20MEQ/100ML 100 ML IV PRN (10:00)
[2022-05-22] MEDS ORDERED: LIDOCAINE HCL-MPF 1% 2ML VIAL IV PRN (10:00)
[2022-05-22 12:30] VITALS: BP 122/57
[2022-05-22] MEDS: METRONIDAZOLE 500MG/100ML BAG 100 ML IVPB SCH ×2 (13:33→20:11)
[2022-05-22] MEDS: LEVOFLOXACIN 500 MG/D5W 100 ML 100 ML IV SCH (13:33)
[2022-05-22 16:21] VITALS: BP 130/57
[2022-05-22] MEDS: POTASSIUM CHLORIDE 10MEQ/100ML IV PRN ×2 (16:59→21:31)
[2022-05-22 19:55] VITALS: BP 139/63
[2022-05-22] MEDS: LIDOCAINE HCL-MPF 1% 2ML VIAL IJ PRN (21:31)
[2022-05-22 23:31] VITALS: BP 143/68
[2022-05-23] MEDS: 0.9%NACL 1000ML 1,000 ML IV SCH ×3 (03:19→19:30)
[2022-05-23 03:42] VITALS: BP 123/60
[2022-05-23] MEDS: MORPHINE 4 MG SYG IV PRN ×2 (05:11→19:39)
[2022-05-23] MEDS: METRONIDAZOLE 500MG/100ML BAG 100 ML IVPB SCH ×3 (05:11→19:39)
[2022-05-23 05:50] LABS: BASOPHILS % (AUTO) 0.3 % (0.0-5.0); EOSINOPHILS % (AUTO) 1.1 % (0.0-8.0); HEMATOCRIT 34.5 % (36-48); LYMPHOCYTES % (AUTO) 17.8 % (21.0-51.0); MEAN CORPUSCULAR HEMOGLOBIN 29.6 pg (27.0-33.0); MEAN CORPUSCULAR HGB CONC 33.3 g/dL (32.0-36.0); MEAN CORPUSCULAR VOLUME 88.9 fL (79-99); NEUTROPHILS % (AUTO) 74.7 % (40.0-77.0); PLATELET COUNT (AUTO) 169 K/uL (130-400); RED BLOOD CELL COUNT(AUTO) 3.88 MIL/uL (4.00-5.50); RED CELL DISTRIBUTION WIDTH 11.9 % (11.0-15.5)
[2022-05-23] MEDS: INSULIN HUMULIN R 100 UNIT/ML 3ML SQ SCH ×3 (06:00→18:00)
[2022-05-23 06:02] LABS: CREATININE 0.5 mg/dL (0.5-1.5); MAGNESIUM 1.9 mg/dL (1.80-2.40); POTASSIUM 3.4 mmol/L (3.5-5.1)
[2022-05-23 07:54] VITALS: BP 126/65
[2022-05-23] MEDS: FAMOTIDINE 20MG VIAL IV SCH ×2 (09:37→19:39)
[2022-05-23] MEDS: LEVOFLOXACIN 500 MG/D5W 100 ML 100 ML IV SCH (10:12)
[2022-05-23] MEDS: LIDOCAINE HCL-MPF 1% 2ML VIAL IJ PRN (10:49)
[2022-05-23] MEDS: POTASSIUM CHLORIDE 10MEQ/100ML IV PRN (10:49)
[2022-05-23] MEDS: ENOXAPARIN SODIUM 30 MG/0.3 ML SQ SCH (10:54)
[2022-05-23 11:44] VITALS: BP 136/75
[2022-05-23 14:10] LABS: CREATININE 0.5 mg/dL (0.5-1.5); PHOSPHORUS 3.1 mg/dL (2.5-4.9); POTASSIUM 3.6 mmol/L (3.5-5.1)
[2022-05-23 17:24] VITALS: BP 130/64
[2022-05-23 20:43] VITALS: BP 131/60
[2022-05-23] MEDS ORDERED: FLUCONAZOLE 100 MG TAB PO SCH (21:00)
[2022-05-23 23:48] VITALS: BP 118/62
[2022-05-24] MEDS: 0.9%NACL 1000ML 1,000 ML IV SCH ×3 (03:30→19:30)
[2022-05-24 04:37] VITALS: BP 134/73
[2022-05-24] MEDS: METRONIDAZOLE 500MG/100ML BAG 100 ML IVPB SCH ×3 (05:30→21:46)
[2022-05-24 05:31] LABS: BASOPHILS % (AUTO) 0.4 % (0.0-5.0); EOSINOPHILS % (AUTO) 1.1 % (0.0-8.0); HEMATOCRIT 34.3 % (36-48); LYMPHOCYTES % (AUTO) 16.9 % (21.0-51.0); MEAN CORPUSCULAR HEMOGLOBIN 30.1 pg (27.0-33.0); MEAN CORPUSCULAR HGB CONC 33.8 g/dL (32.0-36.0); MEAN CORPUSCULAR VOLUME 88.9 fL (79-99); MONOCYTES % (AUTO) 5.6 % (3.0-13.0); NEUTROPHILS % (AUTO) 75.6 % (40.0-77.0); PLATELET COUNT (AUTO) 192 K/uL (130-400); RED BLOOD CELL COUNT(AUTO) 3.86 MIL/uL (4.00-5.50); RED CELL DISTRIBUTION WIDTH 11.9 % (11.0-15.5); WHITE BLOOD COUNT (AUTO) 8.1 K/uL (4.8-10.8)
[2022-05-24 05:41] LABS: CREATININE 0.5 mg/dL (0.5-1.5); MAGNESIUM 1.8 mg/dL (1.80-2.40); POTASSIUM 3.2 mmol/L (3.5-5.1)
[2022-05-24] MEDS: INSULIN HUMULIN R 100 UNIT/ML 3ML SQ SCH ×5 (06:00→23:51)
[2022-05-24 08:00] VITALS: BP 135/61
[2022-05-24] MEDS: FAMOTIDINE 20MG VIAL IV SCH ×2 (08:02→20:32)
[2022-05-24] MEDS ORDERED: DIATR MEGLU/DIATRIZOATE SODIUM 30 ML BOTTLE ONE (08:35)
[2022-05-24] MEDS: LEVOFLOXACIN 500 MG/D5W 100 ML 100 ML IV SCH (10:12)
[2022-05-24] MEDS: MORPHINE 2 MG SYG IV PRN (11:14)
[2022-05-24 11:15] VITALS: BP 131/65
[2022-05-24] MEDS: ENOXAPARIN SODIUM 30 MG/0.3 ML SQ SCH (14:23)
[2022-05-24 16:00] VITALS: BP 135/67
[2022-05-24 20:15] VITALS: BP 133/77
[2022-05-24] MEDS: LIDOCAINE HCL-MPF 1% 2ML VIAL IJ PRN (20:32)
[2022-05-24] MEDS: POTASSIUM CHLORIDE 20MEQ/100ML 100 ML IV PRN (20:32)
[2022-05-25 00:11] VITALS: BP 127/58
[2022-05-25] MEDS: LIDOCAINE HCL-MPF 1% 2ML VIAL IJ PRN ×2 (00:56→06:50)
[2022-05-25] MEDS: POTASSIUM CHLORIDE 20MEQ/100ML 100 ML IV PRN ×2 (00:56→06:50)
[2022-05-25] MEDS: 0.9%NACL 1000ML 1,000 ML IV SCH ×4 (03:10→23:00)
[2022-05-25 04:25] VITALS: BP 125/70
[2022-05-25] MEDS: METRONIDAZOLE 500MG/100ML BAG 100 ML IVPB SCH ×3 (05:15→21:47)
[2022-05-25] MEDS: INSULIN HUMULIN R 100 UNIT/ML 3ML SQ SCH ×3 (06:00→18:00)
[2022-05-25 08:00] VITALS: BP 138/71
[2022-05-25] MEDS: ENOXAPARIN SODIUM 30 MG/0.3 ML SQ SCH ×2 (08:36→09:00)
[2022-05-25] MEDS: FAMOTIDINE 20MG VIAL IV SCH ×2 (08:36→20:22)
[2022-05-25] MEDS ORDERED: MAGNESIUM OXIDE 400 MG TABLET PO SCH (09:00)
[2022-05-25] MEDS ORDERED: POTASSIUM CHLORIDE 10MEQ SR TAB PO SCH (09:00)
[2022-05-25] MEDS: LEVOFLOXACIN 500 MG/D5W 100 ML 100 ML IV SCH (11:25)
[2022-05-25] MEDS: BENZOCAINE/MENTH/CETYLPYRD CL 1 EACH LOZENGE MM SCH ×4 (11:25→20:24)
[2022-05-25 12:00] VITALS: BP 121/76
[2022-05-25 16:00] VITALS: BP 123/66
[2022-05-25 19:00] VITALS: BP 131/62
[2022-05-25] MEDS: MORPHINE 2 MG SYG IV PRN (20:30)
[2022-05-25] MEDS: ONDANSETRON 4MG INJ IV PRN (20:30)
[2022-05-26] VITALS: BP 128/62
[2022-05-26] MEDS: 0.9%NACL 1000ML 1,000 ML IV SCH ×3 (02:41→21:01)
[2022-05-26 04:00] VITALS: BP 113/49
[2022-05-26] MEDS: METRONIDAZOLE 500MG/100ML BAG 100 ML IVPB SCH ×3 (04:46→21:01)
[2022-05-26] MEDS: INSULIN HUMULIN R 100 UNIT/ML 3ML SQ SCH ×4 (06:00→18:00)
[2022-05-26] MEDS: POTASSIUM CHLORIDE 20MEQ/100ML 100 ML IV PRN (06:46)
[2022-05-26] MEDS: LIDOCAINE HCL-MPF 1% 2ML VIAL IJ PRN ×2 (06:46→08:51)
[2022-05-26 07:45] LABS: BASOPHILS % (AUTO) 0.5 % (0.0-5.0); EOSINOPHILS % (AUTO) 1.4 % (0.0-8.0); HEMATOCRIT 36.2 % (36-48); LYMPHOCYTES % (AUTO) 21.5 % (21.0-51.0); MEAN CORPUSCULAR HGB CONC 34.3 g/dL (32.0-36.0); MEAN CORPUSCULAR VOLUME 87.7 fL (79-99); MONOCYTES % (AUTO) 6.1 % (3.0-13.0); NEUTROPHILS % (AUTO) 70.2 % (40.0-77.0); PLATELET COUNT (AUTO) 208 K/uL (130-400); RED BLOOD CELL COUNT(AUTO) 4.13 MIL/uL (4.00-5.50); RED CELL DISTRIBUTION WIDTH 12.5 % (11.0-15.5); WHITE BLOOD COUNT (AUTO) 7.4 K/uL (4.8-10.8)
[2022-05-26 08:00] VITALS: BP 122/62
[2022-05-26 08:06] LABS: ALBUMIN 3.3 g/dL (3.5-5.0); CREATININE 0.5 mg/dL (0.5-1.5); MAGNESIUM 1.8 mg/dL (1.80-2.40); POTASSIUM 3.5 mmol/L (3.5-5.1); TOTAL PROTEIN, SERUM 6.4 g/dL (6.0-8.3)
[2022-05-26] MEDS: FAMOTIDINE 20MG VIAL IV SCH ×2 (08:51→21:02)
[2022-05-26] MEDS: BENZOCAINE/MENTH/CETYLPYRD CL 1 EACH LOZENGE MM SCH ×3 (08:51→21:02)
[2022-05-26] MEDS: ENOXAPARIN SODIUM 30 MG/0.3 ML SQ SCH (08:52)
[2022-05-26] MEDS: LEVOFLOXACIN 500 MG/D5W 100 ML 100 ML IV SCH (10:56)
[2022-05-26 12:00] VITALS: BP 132/67
[2022-05-26] MEDS ORDERED: DIATR MEGLU/DIATRIZOATE SODIUM 30 ML BOTTLE ONE (12:24)
[2022-05-26 16:00] VITALS: BP 128/68
[2022-05-26 19:00] VITALS: BP 130/68
[2022-05-26] MEDS: MORPHINE 2 MG SYG IV PRN (22:32)
[2022-05-27] VITALS (7 sets, daily range): BP systolic 117–135; BP diastolic 58–83
[2022-05-27] MEDS: METRONIDAZOLE 500MG/100ML BAG 100 ML IVPB SCH ×3 (05:03→22:11)
[2022-05-27] MEDS: 0.9%NACL 1000ML 1,000 ML IV SCH ×2 (05:04→15:09)
[2022-05-27 05:22] LABS: BASOPHILS % (AUTO) 0.3 % (0.0-5.0); EOSINOPHILS % (AUTO) 1.8 % (0.0-8.0); HEMATOCRIT 36.9 % (36-48); LYMPHOCYTES % (AUTO) 24.3 % (21.0-51.0); MEAN CORPUSCULAR HEMOGLOBIN 29.6 pg (27.0-33.0); MEAN CORPUSCULAR HGB CONC 33.3 g/dL (32.0-36.0); MEAN CORPUSCULAR VOLUME 88.9 fL (79-99); MONOCYTES % (AUTO) 5.3 % (3.0-13.0); PLATELET COUNT (AUTO) 212 K/uL (130-400); RED BLOOD CELL COUNT(AUTO) 4.15 MIL/uL (4.00-5.50); RED CELL DISTRIBUTION WIDTH 12.2 % (11.0-15.5); WHITE BLOOD COUNT (AUTO) 8.7 K/uL (4.8-10.8)
[2022-05-27 05:49] LABS: ALBUMIN 3.2 g/dL (3.5-5.0); CREATININE 0.5 mg/dL (0.5-1.5); TOTAL PROTEIN, SERUM 6.2 g/dL (6.0-8.3)
[2022-05-27] MEDS: INSULIN HUMULIN R 100 UNIT/ML 3ML SQ SCH ×4 (06:00→17:23)
[2022-05-27] MEDS: POTASSIUM CHLORIDE 20MEQ/100ML 100 ML IV PRN ×2 (06:11→19:40)
[2022-05-27] MEDS: LIDOCAINE HCL-MPF 1% 2ML VIAL IJ PRN ×2 (06:11→19:40)
[2022-05-27] MEDS: BENZOCAINE/MENTH/CETYLPYRD CL 1 EACH LOZENGE MM SCH ×3 (09:00→21:00)
[2022-05-27] MEDS: ENOXAPARIN SODIUM 30 MG/0.3 ML SQ SCH (09:00)
[2022-05-27] MEDS: LEVOFLOXACIN 500 MG/D5W 100 ML 100 ML IV SCH (10:28)
[2022-05-27] MEDS: FAMOTIDINE 20MG VIAL IV SCH ×2 (10:28→20:38)
[2022-05-27] MEDS: MORPHINE 2 MG SYG IV PRN (22:14)
[2022-05-28] VITALS (31 sets, daily range): BP systolic 112–157; BP diastolic 59–79
[2022-05-28] MEDS: 0.9%NACL 1000ML 1,000 ML IV SCH ×4 (01:43→19:52)
[2022-05-28] MEDS: METRONIDAZOLE 500MG/100ML BAG 100 ML IVPB SCH ×3 (05:27→22:18)
[2022-05-28 05:47] LABS: BASOPHILS % (AUTO) 0.4 % (0.0-5.0); EOSINOPHILS % (AUTO) 2.2 % (0.0-8.0); HEMATOCRIT 36.3 % (36-48); LYMPHOCYTES % (AUTO) 25.4 % (21.0-51.0); MEAN CORPUSCULAR HEMOGLOBIN 29.5 pg (27.0-33.0); MEAN CORPUSCULAR HGB CONC 34.4 g/dL (32.0-36.0); MEAN CORPUSCULAR VOLUME 85.6 fL (79-99); MONOCYTES % (AUTO) 5.6 % (3.0-13.0); PLATELET COUNT (AUTO) 225 K/uL (130-400); RED BLOOD CELL COUNT(AUTO) 4.24 MIL/uL (4.00-5.50); RED CELL DISTRIBUTION WIDTH 12.2 % (11.0-15.5); WHITE BLOOD COUNT (AUTO) 7.1 K/uL (4.8-10.8)
[2022-05-28] MEDS: INSULIN HUMULIN R 100 UNIT/ML 3ML SQ SCH ×5 (06:00→23:14)
[2022-05-28 06:07] LABS: ALBUMIN 3.2 g/dL (3.5-5.0); CREATININE 0.5 mg/dL (0.5-1.5); POTASSIUM 3.4 mmol/L (3.5-5.1); TOTAL PROTEIN, SERUM 6.2 g/dL (6.0-8.3)
[2022-05-28] MEDS ORDERED: BUPIVACAINE/PF 0.5% 10ML VIAL ONE (08:37)
[2022-05-28] MEDS: ENOXAPARIN SODIUM 30 MG/0.3 ML SQ SCH (09:00)
[2022-05-28] MEDS: BENZOCAINE/MENTH/CETYLPYRD CL 1 EACH LOZENGE MM SCH ×3 (09:00→21:00)
[2022-05-28] MEDS: LEVOFLOXACIN 500 MG/D5W 100 ML 100 ML IV SCH (10:21)
[2022-05-28] MEDS ORDERED: HYDROMORPHONE 1 MG INJ ONE ×2 (10:29→13:31)
[2022-05-28] MEDS ORDERED: SUCCINYLCHOLINE CHLORIDE 20 MG/ML 10 ML VIAL ONE (10:33)
[2022-05-28] MEDS ORDERED: LIDOCAINE PF 100MG/5ML (2%) SYRINGE 5ML ONE (10:33)
[2022-05-28] MEDS ORDERED: ROCURONIUM 10MG/1ML SYR 10 MG/ML ML ONE (10:34)
[2022-05-28] MEDS ORDERED: ONDANSETRON 4MG INJ ONE (10:34)
[2022-05-28] MEDS ORDERED: PROPOFOL 10 MG/ML 20ML VIAL IV ONE (10:34)
[2022-05-28] MEDS ORDERED: GLYCOPYRROLATE 1 MG/5 ML SYRINGE ONE (10:34)
[2022-05-28] MEDS ORDERED: FENTANYL CITRATE PF 50 MCG/1 ML 2ML VIAL ONE ×2 (10:35→13:02)
[2022-05-28] MEDS ORDERED: MIDAZOLAM HCL 1 MG/ML 2ML VIAL ONE (10:49)
[2022-05-28] MEDS ORDERED: NEOSTIGMINE 5MG/5ML SYR IV ONE (12:13)
[2022-05-28] MEDS: FAMOTIDINE 20MG VIAL IV SCH ×2 (15:28→19:51)
[2022-05-28] MEDS: MORPHINE 4 MG SYG IV PRN ×2 (15:29→19:51)
[2022-05-28] MEDS: ONDANSETRON 4MG INJ IV PRN (19:51)
[2022-05-29] MEDS: MORPHINE 2 MG SYG IV PRN ×4 (00:25→20:45)
[2022-05-29] MEDS: 0.9%NACL 1000ML 1,000 ML IV SCH ×3 (04:00→20:43)
[2022-05-29 04:45] VITALS: BP 123/69
[2022-05-29] MEDS: METRONIDAZOLE 500MG/100ML BAG 100 ML IVPB SCH ×3 (05:36→23:06)
[2022-05-29 05:39] LABS: BASOPHILS % (AUTO) 0.2 % (0.0-5.0); HEMATOCRIT 39.2 % (36-48); LYMPHOCYTES % (AUTO) 9.5 % (21.0-51.0); MEAN CORPUSCULAR HEMOGLOBIN 29.9 pg (27.0-33.0); MEAN CORPUSCULAR HGB CONC 35.7 g/dL (32.0-36.0); MEAN CORPUSCULAR VOLUME 83.8 fL (79-99); MONOCYTES % (AUTO) 5.1 % (3.0-13.0); NEUTROPHILS % (AUTO) 84.7 % (40.0-77.0); PLATELET COUNT (AUTO) 220 K/uL (130-400); RED BLOOD CELL COUNT(AUTO) 4.68 MIL/uL (4.00-5.50); RED CELL DISTRIBUTION WIDTH 13.1 % (11.0-15.5); WHITE BLOOD COUNT (AUTO) 12.9 K/uL (4.8-10.8)
[2022-05-29 05:51] LABS: ALBUMIN 2.9 g/dL (3.5-5.0); CREATININE 0.6 mg/dL (0.5-1.5); POTASSIUM 3.6 mmol/L (3.5-5.1); TOTAL PROTEIN, SERUM 5.9 g/dL (6.0-8.3)
[2022-05-29] MEDS: INSULIN HUMULIN R 100 UNIT/ML 3ML SQ SCH ×4 (06:00→23:47)
[2022-05-29 08:00] VITALS: BP 120/74
[2022-05-29] MEDS: BENZOCAINE/MENTH/CETYLPYRD CL 1 EACH LOZENGE MM SCH ×3 (09:00→20:43)
[2022-05-29] MEDS: ENOXAPARIN SODIUM 30 MG/0.3 ML SQ SCH (09:27)
[2022-05-29] MEDS: FAMOTIDINE 20MG VIAL IV SCH ×2 (09:27→20:44)
[2022-05-29] MEDS ORDERED: CLINIMIX-E4.25%AA/D5+LYT2000ML 2,000 ML IV SCH (11:00)
[2022-05-29] MEDS: MAGNESIUM 2GM PREMIX 50ML 50 ML IV PRN (11:06)
[2022-05-29] MEDS: LEVOFLOXACIN 500 MG/D5W 100 ML 100 ML IV SCH (11:10)
[2022-05-29 12:00] VITALS: BP 118/73
[2022-05-29] MEDS ORDERED: CLINIMIX-E 4.25AA/D5+LYT1000ML 1,000 ML IV SCH (12:00)
[2022-05-29 16:00] VITALS: BP 134/71
[2022-05-29 19:55] VITALS: BP 127/73
[2022-05-29] MEDS: POTASSIUM CHLORIDE 20MEQ/100ML 100 ML IV PRN (20:44)
[2022-05-29] MEDS: LIDOCAINE HCL-MPF 1% 2ML VIAL IJ PRN (20:44)
[2022-05-29 23:47] VITALS: BP 123/66
[2022-05-30] MEDS: 0.9%NACL 1000ML 1,000 ML IV SCH ×3 (03:30→20:43)
[2022-05-30] MEDS: MORPHINE 2 MG SYG IV PRN ×2 (03:41→10:20)
[2022-05-30 04:37] VITALS: BP 118/68
[2022-05-30] MEDS: METRONIDAZOLE 500MG/100ML BAG 100 ML IVPB SCH ×3 (05:06→20:44)
[2022-05-30] MEDS: INSULIN HUMULIN R 100 UNIT/ML 3ML SQ SCH ×3 (05:59→17:54)
[2022-05-30 06:21] LABS: BASOPHILS % (AUTO) 0.2 % (0.0-5.0); EOSINOPHILS % (AUTO) 0.8 % (0.0-8.0); HEMATOCRIT 32.7 % (36-48); LYMPHOCYTES % (AUTO) 12.1 % (21.0-51.0); MEAN CORPUSCULAR HEMOGLOBIN 29.8 pg (27.0-33.0); MEAN CORPUSCULAR HGB CONC 34.9 g/dL (32.0-36.0); MEAN CORPUSCULAR VOLUME 85.6 fL (79-99); MONOCYTES % (AUTO) 6.3 % (3.0-13.0); NEUTROPHILS % (AUTO) 80.1 % (40.0-77.0); PLATELET COUNT (AUTO) 185 K/uL (130-400); RED BLOOD CELL COUNT(AUTO) 3.82 MIL/uL (4.00-5.50); RED CELL DISTRIBUTION WIDTH 13.1 % (11.0-15.5); WHITE BLOOD COUNT (AUTO) 10.2 K/uL (4.8-10.8)
[2022-05-30 06:48] LABS: ALBUMIN 2.4 g/dL (3.5-5.0); CREATININE 0.5 mg/dL (0.5-1.5); MAGNESIUM 1.9 mg/dL (1.80-2.40); TOTAL PROTEIN, SERUM 5.2 g/dL (6.0-8.3)
[2022-05-30 06:52] LABS: POTASSIUM 2.7 mmol/L (3.5-5.1)
[2022-05-30] MEDS: POTASSIUM CHLORIDE 20MEQ/100ML 100 ML IV PRN ×2 (07:53→17:23)
[2022-05-30 08:00] VITALS: BP 125/70
[2022-05-30] MEDS: BENZOCAINE/MENTH/CETYLPYRD CL 1 EACH LOZENGE MM SCH ×3 (09:00→20:43)
[2022-05-30] MEDS: ENOXAPARIN SODIUM 30 MG/0.3 ML SQ SCH (09:18)
[2022-05-30] MEDS: FAMOTIDINE 20MG VIAL IV SCH ×2 (09:18→20:43)
[2022-05-30 12:00] VITALS: BP 126/75
[2022-05-30] MEDS: LEVOFLOXACIN 500 MG/D5W 100 ML 100 ML IV SCH (12:38)
[2022-05-30] MEDS: CLINIMIX-E 4.25AA/D5+LYT1000ML 1,000 ML IV SCH (12:47)
[2022-05-30 16:00] VITALS: BP 120/69
[2022-05-30 20:03] VITALS: BP 112/68
[2022-05-30] MEDS ORDERED: MORPHINE 2 MG SYG ONE (21:09)
[2022-05-30 23:32] VITALS: BP 128/71
[2022-05-31] MEDS: 0.9%NACL 1000ML 1,000 ML IV SCH ×3 (03:30→19:30)
[2022-05-31 04:21] VITALS: BP 121/68
[2022-05-31] MEDS: METRONIDAZOLE 500MG/100ML BAG 100 ML IVPB SCH ×3 (05:26→21:47)
[2022-05-31] MEDS: MORPHINE 2 MG SYG IVP PRN ×2 (05:28→22:53)
[2022-05-31] MEDS: INSULIN HUMULIN R 100 UNIT/ML 3ML SQ SCH ×4 (06:00→18:00)
[2022-05-31 06:12] LABS: BASOPHILS % (AUTO) 0.1 % (0.0-5.0); EOSINOPHILS % (AUTO) 2.9 % (0.0-8.0); HEMATOCRIT 30.3 % (36-48); LYMPHOCYTES % (AUTO) 14.8 % (21.0-51.0); MEAN CORPUSCULAR HEMOGLOBIN 29.7 pg (27.0-33.0); MEAN CORPUSCULAR HGB CONC 33.7 g/dL (32.0-36.0); MEAN CORPUSCULAR VOLUME 88.3 fL (79-99); MONOCYTES % (AUTO) 5.9 % (3.0-13.0); NEUTROPHILS % (AUTO) 75.9 % (40.0-77.0); PLATELET COUNT (AUTO) 183 K/uL (130-400); RED BLOOD CELL COUNT(AUTO) 3.43 MIL/uL (4.00-5.50); WHITE BLOOD COUNT (AUTO) 8.2 K/uL (4.8-10.8)
[2022-05-31 06:28] LABS: ALBUMIN 2.3 g/dL (3.5-5.0); CREATININE 0.4 mg/dL (0.5-1.5); TOTAL PROTEIN, SERUM 5.3 g/dL (6.0-8.3)
[2022-05-31 06:33] LABS: POTASSIUM 2.7 mmol/L (3.5-5.1)
[2022-05-31] MEDS: LIDOCAINE HCL-MPF 1% 2ML VIAL IJ PRN (07:20)
[2022-05-31] MEDS: POTASSIUM CHLORIDE 10MEQ/100ML IV PRN (07:20)
[2022-05-31] MEDS: CLINIMIX-E 4.25AA/D5+LYT1000ML 1,000 ML IV SCH (08:30)
[2022-05-31] MEDS: FAMOTIDINE 20MG VIAL IV SCH ×2 (08:45→21:47)
[2022-05-31] MEDS: ENOXAPARIN SODIUM 30 MG/0.3 ML SQ SCH (08:45)
[2022-05-31] MEDS: BENZOCAINE/MENTH/CETYLPYRD CL 1 EACH LOZENGE MM SCH ×3 (08:45→21:47)
[2022-05-31] MEDS: LEVOFLOXACIN 500 MG/D5W 100 ML 100 ML IV SCH (18:09)
[2022-05-31 20:00] VITALS: BP 123/63
[2022-05-31] MEDS ORDERED: CLINIMIX-E 4.25AA/D5+LYT1000ML 1,000 ML IV ONE (20:00)
[2022-06-01] VITALS: BP 123/67
[2022-06-01] MEDS: 0.9%NACL 1000ML 1,000 ML IV SCH ×3 (02:49→19:43)
[2022-06-01 04:00] VITALS: BP 116/59
[2022-06-01] MEDS: POTASSIUM CHLORIDE 20MEQ/100ML 100 ML IV PRN ×3 (04:04→23:52)
[2022-06-01] MEDS: LIDOCAINE HCL-MPF 1% 2ML VIAL IJ PRN ×3 (04:04→23:54)
[2022-06-01] MEDS: INSULIN HUMULIN R 100 UNIT/ML 3ML SQ SCH ×4 (05:49→18:00)
[2022-06-01] MEDS: METRONIDAZOLE 500MG/100ML BAG 100 ML IVPB SCH ×3 (05:51→22:44)
[2022-06-01 07:30] VITALS: BP 138/66
[2022-06-01] MEDS: BENZOCAINE/MENTH/CETYLPYRD CL 1 EACH LOZENGE MM SCH ×3 (10:18→19:54)
[2022-06-01] MEDS: FAMOTIDINE 20MG VIAL IV SCH ×2 (10:19→19:43)
[2022-06-01] MEDS: ENOXAPARIN SODIUM 30 MG/0.3 ML SQ SCH (10:20)
[2022-06-01 11:30] VITALS: BP 119/89
[2022-06-01] MEDS: LEVOFLOXACIN 500 MG/D5W 100 ML 100 ML IV SCH (11:53)
[2022-06-01 15:30] VITALS: BP 126/67
[2022-06-01] MEDS ORDERED: CLINIMIX-E4.25%AA/D5+LYT2000ML 2,000 ML IV ONE (18:30)
[2022-06-01 20:00] VITALS: BP 119/92
[2022-06-02] VITALS (7 sets, daily range): BP systolic 119–134; BP diastolic 65–76
[2022-06-02] MEDS: 0.9%NACL 1000ML 1,000 ML IV SCH ×3 (03:30→19:30)
[2022-06-02] MEDS: INSULIN HUMULIN R 100 UNIT/ML 3ML SQ SCH ×5 (05:44→20:38)
[2022-06-02] MEDS: METRONIDAZOLE 500MG/100ML BAG 100 ML IVPB SCH ×3 (05:49→21:06)
[2022-06-02] MEDS: ENOXAPARIN SODIUM 30 MG/0.3 ML SQ SCH (09:00)
[2022-06-02] MEDS: FAMOTIDINE 20MG VIAL IV SCH ×2 (09:14→20:54)
[2022-06-02] MEDS: BENZOCAINE/MENTH/CETYLPYRD CL 1 EACH LOZENGE MM SCH ×3 (09:15→20:54)
[2022-06-02] MEDS: LIDOCAINE HCL-MPF 1% 2ML VIAL IJ PRN (09:25)
[2022-06-02] MEDS: POTASSIUM CHLORIDE 20 MEQ/100 ML BAG IV SCH (09:32)
[2022-06-02] MEDS: LEVOFLOXACIN 500 MG/D5W 100 ML 100 ML IV SCH (10:43)
[2022-06-02] MEDS: POTASSIUM CHLORIDE 10% ELIXIR 20 MEQ/15 ML UDCUP PO PRN ×2 (19:22→21:45)
[2022-06-02] MEDS ORDERED: CLINIMIX-E4.25%AA/D5+LYT2000ML 2,000 ML IV ONE (21:00)
[2022-06-02] MEDS: FAT EMULSIONS 20% 250ML 250 ML IV SCH (21:45)
[2022-06-02] MEDS: MAGNESIUM 2GM PREMIX 50ML 50 ML IV PRN (21:46)
[2022-06-03] MEDS: POTASSIUM CHLORIDE 10% ELIXIR 20 MEQ/15 ML UDCUP PO PRN ×4 (01:22→15:41)
[2022-06-03] MEDS: 0.9%NACL 1000ML 1,000 ML IV SCH ×3 (01:23→19:30)
[2022-06-03 03:28] VITALS: BP 132/71
[2022-06-03 04:47] LABS: BASOPHILS % (AUTO) 0.3 % (0.0-5.0); HEMATOCRIT 33.2 % (36-48); LYMPHOCYTES % (AUTO) 25.6 % (21.0-51.0); MEAN CORPUSCULAR HEMOGLOBIN 29.4 pg (27.0-33.0); MEAN CORPUSCULAR HGB CONC 33.4 g/dL (32.0-36.0); MEAN CORPUSCULAR VOLUME 88.1 fL (79-99); MONOCYTES % (AUTO) 8.2 % (3.0-13.0); NEUTROPHILS % (AUTO) 62.4 % (40.0-77.0); PLATELET COUNT (AUTO) 241 K/uL (130-400); RED BLOOD CELL COUNT(AUTO) 3.77 MIL/uL (4.00-5.50)
[2022-06-03] MEDS: METRONIDAZOLE 500MG/100ML BAG 100 ML IVPB SCH ×3 (05:10→21:18)
[2022-06-03 05:20] LABS: ALBUMIN 2.9 g/dL (3.5-5.0); CREATININE 0.5 mg/dL (0.5-1.5); MAGNESIUM 2.2 mg/dL (1.80-2.40); POTASSIUM 3.7 mmol/L (3.5-5.1)
[2022-06-03] MEDS: INSULIN HUMULIN R 100 UNIT/ML 3ML SQ SCH ×4 (06:15→20:42)
[2022-06-03 08:00] VITALS: BP_SYST 136; BP_SYST 96; BP_DIAS 56; BP_DIAS 78
[2022-06-03] MEDS: POTASSIUM CHLORIDE 20 MEQ/100 ML BAG IV SCH (08:07)
[2022-06-03] MEDS: ENOXAPARIN SODIUM 30 MG/0.3 ML SQ SCH (09:00)
[2022-06-03] MEDS: BENZOCAINE/MENTH/CETYLPYRD CL 1 EACH LOZENGE MM SCH ×3 (09:54→20:18)
[2022-06-03] MEDS: FAMOTIDINE 20MG VIAL IV SCH ×2 (09:55→20:18)
[2022-06-03] MEDS: LEVOFLOXACIN 500 MG/D5W 100 ML 100 ML IV SCH (10:16)
[2022-06-03 11:27] VITALS: BP 128/71
[2022-06-03 16:00] VITALS: BP 120/78
[2022-06-03 20:00] VITALS: BP 104/64
[2022-06-03] MEDS: SIMETHICONE 80 MG TAB.CHEW PO SCH (20:18)
[2022-06-03] MEDS: DOCUSATE SODIUM 100 MG CAP PO SCH (20:18)
[2022-06-04] VITALS: BP 121/75
[2022-06-04] MEDS: 0.9%NACL 1000ML 1,000 ML IV SCH ×3 (02:50→19:30)
[2022-06-04 04:00] VITALS: BP 123/66
[2022-06-04] MEDS: METRONIDAZOLE 500MG/100ML BAG 100 ML IVPB SCH ×3 (05:06→22:19)
[2022-06-04 05:39] LABS: BASOPHILS % (AUTO) 0.5 % (0.0-5.0); HEMATOCRIT 33.6 % (36-48); LYMPHOCYTES % (AUTO) 27.8 % (21.0-51.0); MEAN CORPUSCULAR HEMOGLOBIN 29.7 pg (27.0-33.0); MEAN CORPUSCULAR VOLUME 89.8 fL (79-99); MONOCYTES % (AUTO) 8.9 % (3.0-13.0); NEUTROPHILS % (AUTO) 59.3 % (40.0-77.0); PLATELET COUNT (AUTO) 225 K/uL (130-400); RED BLOOD CELL COUNT(AUTO) 3.74 MIL/uL (4.00-5.50); RED CELL DISTRIBUTION WIDTH 13.2 % (11.0-15.5)
[2022-06-04] MEDS: INSULIN HUMULIN R 100 UNIT/ML 3ML SQ SCH ×3 (05:51→21:00)
[2022-06-04 05:56] LABS: ALBUMIN 2.9 g/dL (3.5-5.0); CREATININE 0.5 mg/dL (0.5-1.5); POTASSIUM 3.7 mmol/L (3.5-5.1)
[2022-06-04 08:00] VITALS: BP 111/69
[2022-06-04] MEDS: BENZOCAINE/MENTH/CETYLPYRD CL 1 EACH LOZENGE MM SCH ×3 (09:00→20:36)
[2022-06-04] MEDS: POTASSIUM CHLORIDE 20 MEQ/100 ML BAG IV SCH (09:00)
[2022-06-04] MEDS: SIMETHICONE 80 MG TAB.CHEW PO SCH ×3 (09:13→22:19)
[2022-06-04] MEDS: FAMOTIDINE 20MG VIAL IV SCH ×2 (09:13→22:19)
[2022-06-04] MEDS: DOCUSATE SODIUM 100 MG CAP PO SCH ×2 (09:13→22:19)
[2022-06-04] MEDS: ENOXAPARIN SODIUM 30 MG/0.3 ML SQ SCH (09:13)
[2022-06-04] MEDS: FAT EMULSIONS 20% 250ML 250 ML IV SCH (10:00)
[2022-06-04] MEDS: LEVOFLOXACIN 500 MG/D5W 100 ML 100 ML IV SCH (11:14)
[2022-06-04 12:00] VITALS: BP 122/68
[2022-06-04 16:00] VITALS: BP 129/70
[2022-06-04 20:00] VITALS: BP 128/74
[2022-06-05] VITALS: BP 124/70
[2022-06-05] MEDS: 0.9%NACL 1000ML 1,000 ML IV SCH ×3 (03:30→19:30)
[2022-06-05 04:00] VITALS: BP 120/68
[2022-06-05] MEDS: INSULIN HUMULIN R 100 UNIT/ML 3ML SQ SCH ×4 (05:49→20:44)
[2022-06-05 05:55] LABS: BASOPHILS % (AUTO) 0.6 % (0.0-5.0); EOSINOPHILS % (AUTO) 2.6 % (0.0-8.0); HEMATOCRIT 35.2 % (36-48); LYMPHOCYTES % (AUTO) 30.6 % (21.0-51.0); MEAN CORPUSCULAR HEMOGLOBIN 29.3 pg (27.0-33.0); MEAN CORPUSCULAR HGB CONC 32.7 g/dL (32.0-36.0); MEAN CORPUSCULAR VOLUME 89.8 fL (79-99); MONOCYTES % (AUTO) 8.2 % (3.0-13.0); NEUTROPHILS % (AUTO) 57.4 % (40.0-77.0); PLATELET COUNT (AUTO) 275 K/uL (130-400); RED BLOOD CELL COUNT(AUTO) 3.92 MIL/uL (4.00-5.50); RED CELL DISTRIBUTION WIDTH 13.2 % (11.0-15.5); WHITE BLOOD COUNT (AUTO) 5.4 K/uL (4.8-10.8)
[2022-06-05 06:16] LABS: ALBUMIN 3.1 g/dL (3.5-5.0); CREATININE 0.6 mg/dL (0.5-1.5); MAGNESIUM 1.9 mg/dL (1.80-2.40); POTASSIUM 3.4 mmol/L (3.5-5.1); TOTAL PROTEIN, SERUM 6.1 g/dL (6.0-8.3)
[2022-06-05] MEDS: METRONIDAZOLE 500MG/100ML BAG 100 ML IVPB SCH (06:58)
[2022-06-05 08:00] VITALS: BP 110/57
[2022-06-05] MEDS: POTASSIUM CHLORIDE 20 MEQ/100 ML BAG IV SCH (09:00)
[2022-06-05] MEDS: BENZOCAINE/MENTH/CETYLPYRD CL 1 EACH LOZENGE MM SCH ×3 (09:00→19:24)
[2022-06-05] MEDS: ENOXAPARIN SODIUM 30 MG/0.3 ML SQ SCH (09:19)
[2022-06-05] MEDS: FAMOTIDINE 20MG VIAL IV SCH ×2 (09:19→19:59)
[2022-06-05] MEDS: SIMETHICONE 80 MG TAB.CHEW PO SCH ×2 (09:20→19:58)
[2022-06-05] MEDS: DOCUSATE SODIUM 100 MG CAP PO SCH ×2 (09:20→19:59)
[2022-06-05] MEDS: KCL 20 MEQ ERTAB PO PRN (09:26)
[2022-06-05 12:00] VITALS: BP 112/65
[2022-06-05 16:00] VITALS: BP 105/58
[2022-06-05 20:00] VITALS: BP 111/69
[2022-06-06] VITALS: BP 126/69
[2022-06-06 04:00] VITALS: BP 105/65
[2022-06-06 05:57] LABS: BASOPHILS % (AUTO) 0.4 % (0.0-5.0); EOSINOPHILS % (AUTO) 2.5 % (0.0-8.0); HEMATOCRIT 34.6 % (36-48); LYMPHOCYTES % (AUTO) 31.9 % (21.0-51.0); MEAN CORPUSCULAR HEMOGLOBIN 29.6 pg (27.0-33.0); MEAN CORPUSCULAR HGB CONC 32.4 g/dL (32.0-36.0); MEAN CORPUSCULAR VOLUME 91.5 fL (79-99); MONOCYTES % (AUTO) 9.7 % (3.0-13.0); PLATELET COUNT (AUTO) 250 K/uL (130-400); RED BLOOD CELL COUNT(AUTO) 3.78 MIL/uL (4.00-5.50); RED CELL DISTRIBUTION WIDTH 13.2 % (11.0-15.5); WHITE BLOOD COUNT (AUTO) 5.7 K/uL (4.8-10.8)
[2022-06-06 06:20] LABS: ALBUMIN 3.1 g/dL (3.5-5.0); CREATININE 0.6 mg/dL (0.5-1.5); MAGNESIUM 1.9 mg/dL (1.80-2.40); POTASSIUM 3.3 mmol/L (3.5-5.1); TOTAL PROTEIN, SERUM 6.1 g/dL (6.0-8.3)
[2022-06-06] MEDS: INSULIN HUMULIN R 100 UNIT/ML 3ML SQ SCH (06:29)
[2022-06-06] MEDS: KCL 20 MEQ ERTAB PO PRN (06:44)
[2022-06-06] MEDS ORDERED: ACET-2079 PO (07:31)
[2022-06-06] MEDS ORDERED: LEVO-70 PO (07:31)
[2022-06-06 08:00] VITALS: BP 119/72
[2022-06-06] MEDS: POTASSIUM CHLORIDE 20 MEQ/100 ML BAG IV SCH (09:00)
[2022-06-06] MEDS: 0.9%NACL 1000ML 1,000 ML IV SCH (09:00)
[2022-06-06] MEDS: BENZOCAINE/MENTH/CETYLPYRD CL 1 EACH LOZENGE MM SCH (09:00)
[2022-06-06] MEDS: SIMETHICONE 80 MG TAB.CHEW PO SCH (09:01)
[2022-06-06] MEDS: FAMOTIDINE 20MG VIAL IV SCH (09:01)
[2022-06-06] MEDS: DOCUSATE SODIUM 100 MG CAP PO SCH (09:01)
[2022-06-06] MEDS: ENOXAPARIN SODIUM 30 MG/0.3 ML SQ SCH (09:01)
== END 2022-06-06 11:30 | disposition home or self-care (01) | DRG 353 ==
LOC: EDH 16:35 → EDHIP 16:36 → 3AH 21:30
PROVIDERS: ADMIT Hospitalist; ATTEND Hospitalist
PROC: 0WQF0ZZ Repair Abdominal Wall, Open Approach (ICD-10-PCS; principal; 2022-05-28 11:23)
DX: K43.0 Incisional hernia with obstruction, without gangrene (principal); E43 Unspecified severe protein-calorie malnutrition; E66.9 Obesity, unspecified; E87.6 Hypokalemia; K66.0 Peritoneal adhesions (postprocedural) (postinfection); Z90.49 Acquired absence of other specified parts of digestive tract; Z68.29 Body mass index [BMI] 29.0-29.9, adult
CPT/HCPCS: 36415; 74018; 74176; 74178; 74250; 80048; 80053; 81001; 82550; 82948; 83036; 83690; 83735; 84100; 84132; 84484; 84703; 85025; 85610; 85730; 87088; 87635; 93005; A4344; C9113; G0378; J0330; J1170; J1650; J1956; J2001; J2250; J2270; J2405; J2704; J2710; J3010; J3475; J3480; J3490; J7030; J7120; Q9963